=== PATIENT | female | born 1955 | race Caucasian/White ===

== ENCOUNTER → 2016-10-02 | Outpatient (CLI) | payer OTHER ==
--- NOTE | 2016-10-02 15:54 | MAMMOGRAPHY REPORT ---
BILATERAL DIGITAL SCREENING MAMMOGRAM WITH CAD: 10/02/2016 CLINICAL HISTORY: Routine screening. Patient has no complaints. TECHNIQUE: Current study was also evaluated with a Computer Aided Detection (CAD) system. Bilatera l CC and MLO views were obtained. COMPARISON: Comparison is made to exams dated: 10/01/2015 mammogram, 09/27/2014 mammogram, 09/26/2013 mammogram, 09/23/2012 mammogram, 09/23/2011 mammogram, and 09/11/2010 mammogram - [facility] enter. BREAST COMPOSITION: The tissue of both breasts is heterogeneously dense, which may obscure small ma sses. FINDINGS: No suspicious masses, calcifications, or areas of architectural distortion are noted in e ither breast. There has been no significant interval change compared to prior exams. IMPRESSION: ACR BI-RADS CATEGORY 1: NEGATIVE There is no mammographic evidence of malignancy. A 1 year screening mammogram is recommended. The p atient will receive written notification of the results. Approximately 10% of breast cancers are not detected with mammography. A negative mammographic repor t should not delay biopsy if a clinically suggestive mass is present. Melania Martinez M.D. /:10/02/2016 15:24:26 Welfare Project Manager: Jennifer RIVERA(Junior)(M), [facility] letter sent: Normal 1/2 BI-RADS Code: ACR BI-RADS Category 1: Negative
== END | disposition home or self-care (01) ==
LOC: C.MAMM 15:08
PROVIDERS: ATTEND Obstetrics & Gynecology
DX: Z12.31 Encounter for screening mammogram for malignant neoplasm of breast (principal)

== ENCOUNTER → 2017-10-05 | Outpatient (CLI) | payer OTHER ==
--- NOTE | 2017-10-06 13:18 | MAMMOGRAPHY REPORT ---
BILATERAL DIGITAL SCREENING MAMMOGRAM TOMOSYNTHESIS WITH CAD: 10/05/2017 CLINICAL HISTORY: Routine screening. Patient has no complaints. TECHNIQUE: Breast tomosynthesis in addition to standard 2D mammography was performed. Current study was also evaluated with a Computer Aided Detection (CAD) system. COMPARISON: Comparison is made to exams dated: 10/02/2016 mammogram, 10/01/2015 mammogram, 09/27/2014 m ammogram, 09/26/2013 mammogram, 09/23/2012 mammogram, and 09/23/2011 mammogram - [facility]. BREAST COMPOSITION: The tissue of both breasts is heterogeneously dense, which may obscure small mas ses. FINDINGS: There are scattered benign rim calcifications in the breasts. A nodular asymmetry in the s lightly medial right breast on the CC view appears similar dating back to at least 09/07/2008, therefo re likely benign. No new suspicious mass, architectural distortion or cluster of microcalcifications is seen. IMPRESSION: ACR BI-RADS CATEGORY 1: NEGATIVE There is no mammographic evidence of malignancy. A 1 year screening mammogram is recommended. The pa tient will receive written notification of the results. Approximately 10% of breast cancers are not detected with mammography. A negative mammographic report should not delay biopsy if a clinically suggestive mass is present. Maribel Comer M.D. ay/:10/06/2017 07:33:43 Clinic Receptionist: Alison MENA)(Prashant), [facility] letter sent: Normal 1/2 BI-RADS Code: ACR BI-RADS Category 1: Negative
== END | disposition home or self-care (01) ==
LOC: C.MAMM 14:13
PROVIDERS: ATTEND Obstetrics & Gynecology
DX: Z12.31 Encounter for screening mammogram for malignant neoplasm of breast (principal)

== ENCOUNTER 2023-07-05 10:40 | Observation (INO) ==
--- NOTE | 2023-07-05 11:22 | Emergency Department Note ---
Impression & Plan Left-sided chest pain, Complete left bundle branch block, Hypertension, Elevated hemoglobin, Elevated hematocrit ED Provider Note NAME: ROLANDO DOSHI AGE: 68 SEX: F ARRIVES VIA: Walk-In INFORMANT: Patient ED PROVIDER(S): Meet Mirza MD CHIEF COMPLAINT: Chest pain PLAN: Disposition: Admit MEDICAL DECISION MAKING: The patient is a pleasant 68-year-old woman with a past medical history of epilepsy, asthma, GERD who presents to the emergency department via walk-in accompanied by her for evaluation of worsening of chronic left shoulder pain over the development of new left-sided chest tightness with pain that also radiates to her jaw that began last night but had been evolving over the past several days with symptoms of generalized fatigue/malaise. She reports that she feels tightness intermittently which she feels is not particularly different and occurs in the setting of her asthma. She usually takes her inhalers and this improves. She reports having 1 episode of loose stool yesterday. She reports some nausea but denies vomiting. She denies any productive sputum. She describes the pain as a tightness that developed gradually denies any acute onset tearing or stabbing pain. She denies any recent pattern of exertional chest pain/pressure though she does report having shortness of breath with exertion at times. She reports having fluctuating symptoms of feeling sweats and then chills but denies any fevers. On evaluation the patient is no acute distress, afebrile heart in the 110s and blood pressure 180s/90s and vital signs otherwise stable. O2 saturation is normal on room air with normal respiratory effort. She has a scant intermittent wheeze and lungs are otherwise clear. Pulses are equal. She has reproducible discomfort of the left anterior superior chest wall without bony crepitus. She has full range of motion of bilateral shoulders without difficulty. EKG demonstrates left bundle branch block without prior for comparison. No Sgarbossa criteria. Chest x-ray negative for acute cardiopulmonary process. WBC and platelets within normal limits. H/H 16.6/49.6 without prior for comparison though suspicious for hemoconcentration and dehydration. Chemistry without metabolic acidosis. Electrolytes LFTs without significant abnormality. AST is mildly elevated 61, nonspecific. Initial high-sensitivity troponin is undetectable. TSH within normal limits. Urine analysis was unremarkable. Dilantin level was within therapeutic range. Respiratory BioFire was negative. CTA of the chest was performed was negative for PE or acute aortic pathology. No acute process otherwise identified. Upon evaluation patient did feel some improvement after IV fluid hydration x 2 L of normal saline, IV APAP, albuterol MDI, famotidine and Solu-Medrol. However still with some residual soreness. We did discuss her results in detail her results. We reviewed her EKG and discussed the nature of a left bundle branch block. Patient reports that she may have had an EKG a couple of years ago prior to having a procedure but she does not recall ever being told she had a left bundle branch block in the past. She follows with her providers in the [facility] and so these results are not accessible. We did review options for further management including close outpatient follow-up versus admission for further cardiac evaluation and possible stress testing given her new left bundle branch block and atypical symptoms. The patient did prefer admission at this time. Given the patient's moderate heart score of 4, reasonable to proceed with admission at this time. Full dose ASA administered. Case was discussed with BRINDA Warren hospitalist, who will evaluate the patient for admission. Further management per admitting team. Triage Nursing notes reviewed and agree them. Prior/external medical records reviewed Vital Signs: reviewed Differential diagnosis: Cardiac ischemia, aortic dissection, pulmonary embolism, pneumothorax, pneumonia, pericarditis, myocarditis, esophageal rupture, GERD, cholecystitis, pancreatitis, musculoskeletal, as well as other pathologies. ER treatment provided: See below. Diagnostics interpreted by me: ECG: Sinus tachycardia, 105 bpm, no ectopy, no sgarbossa criteria, QTC 502, QRS 130. Cardiac Monitoring: An order for continuous cardiac monitoring was placed and demonstrated Sinus tachycardia, 105 bpm, no ectopy. Laboratory studies: See below Imaging studies: See below Consultation(s): Case was discussed with BRINDA Warren hospitalist, who will evaluate the patient for admission. HPI: The patient is a pleasant 68-year-old woman with a past medical history of epilepsy, asthma, GERD who presents to the emergency department via walk-in accompanied by her for evaluation of worsening of chronic left shoulder pain over the development of new left-sided chest tightness with pain that also radiates to her jaw that began last night but had been evolving over the past several days with symptoms of generalized fatigue/malaise. She reports that she feels tightness intermittently which she feels is not particularly different and occurs in the setting of her asthma. She usually takes her inhalers and this improves. She reports having 1 episode of loose stool yesterday. She reports some nausea but denies vomiting. She denies any productive sputum. She describes the pain as a tightness that developed gradually denies any acute onset tearing or stabbing pain. She denies any recent pattern of exertional chest pain/pressure though she does report having shortness of breath with exertion at times. She reports having fluctuating symptoms of feeling sweats and then chills but denies any fevers. ROS: See above HPI for pertinent positives & negatives. A total of 10 systems reviewed and were otherwise negative. VITALS:See Below PHYSICAL EXAMINATION: GENERAL: Awake, alert, well-appearing, in no distress HENT: Normocephalic, atraumatic. Oropharynx with dry mucous membranes and otherwise unremarkable. EYES: Normal conjunctiva. Sclera non-icteric. NECK: Supple. No nuchal rigidity. FROM. No JVD. RESPIRATORY: Scant intermittent wheeze and lungs are otherwise clear. CARDIAC: Regular rate, normal rhythm. Extremities warm and well perfused. Pulses equal. ABDOMEN: Soft, non-distended. No tenderness to palpation. No rebound or guarding. No masses. RECTAL: Deferred. MUSCULOSKELETAL: Reproducible discomfort of the left anterior superior chest wall without bony crepitus. She has full range of motion of bilateral shoulders without difficulty. The back is symmetrical on inspection without obvious abnormality. There is no CVA tenderness to palpation. No joint edema. LOWER EXTREMITIES: Calves are equal size bilaterally and non-tender. No edema. No discoloration. NEURO: Normal sensorium. No sensory or motor deficits noted. SKIN: No rash or jaundice noted. Meet Mirza MD Past Med/Surg History Medical History Epilepsy Asthma Surgical History History of dilatation and curettage History of tubal ligation Family History Grandfather (Paternal) Myocardial infarction Grandmother (Paternal) Myocardial infarction Grandfather (Maternal) Myocardial infarction Denies family history of Ovarian cancer Prostate cancer Breast cancer Colorectal cancer Social History Smoking Status: Never smoker Do You Dip or Chew Tobacco: No; Hx Alcohol Use: No Hx Substance Use: No Preferred Language: Polish Adjustment Clerk Required: No Current Living Situation: Spouse Feels Safe at Home: Yes Safety Concerns: Feels Safe At This Time Allergies Allergies Allergy/AdvReac Type Severity Reaction Status Date / Time budesonide [From Symbicort] Allergy Severe Swelling Unverified 07/05/23 13:53 of Lip/Tongue/Throat formoterol [From Symbicort] Allergy Severe Swelling Unverified 07/05/23 13:53 of Lip/Tongue/Throat shellfish derived Allergy Severe Swelling Unverified 07/05/23 13:53 of Lip/Tongue/Throat gluten Allergy Intermediate Gastrointestinal Unverified 07/05/23 13:53 Upset Macrobid CAPS Allergy Intermediate Rash Uncoded 07/05/23 13:53 Penicillins Allergy Intermediate Rash Uncoded 07/05/23 13:53 Sulfa Drugs Allergy Intermediate Rash Uncoded 07/05/23 13:53 Home Meds Home Medications Medication Instructions Recorded Confirmed cholecalciferol (vitamin D3) 50 50 mcg PO DAILY 07/05/23 07/05/23 mcg (2,000 unit) tablet (Vitamin D3) famotidine 40 mg tablet 40 mg PO DAILY 07/05/23 07/05/23 levalbuterol tartrate 45 1 puff inhalation .Q4-6H PRN SOB 07/05/23 07/05/23 mcg/actuation aerosol inhaler (Xopenex HFA) montelukast 10 mg tablet 10 mg PO DAILY 07/05/23 07/05/23 multivitamin 1 tab PO QAM 07/05/23 07/05/23 pantoprazole 40 mg tablet,delayed 40 mg PO BID PRN Acid Reflux 07/05/23 07/05/23 release phenytoin sodium extended 100 mg 100 mg PO QAM 07/05/23 07/05/23 capsule (Dilantin Extended) phenytoin sodium extended 30 mg See Rx Instructions .Route .COMPLEX 07/05/23 07/05/23 capsule (Dilantin) triprolidine-pseudoephedrine 2.5 1 tab PO QID 07/05/23 07/05/23 mg-60 mg tablet Results & Data (ED) Vital Signs Vital Signs - 24 hr 07/05/23 10:42 07/05/23 11:08 07/05/23 11:30 Temperature 36.2 C L Temperature Source Temporal Artery Scan Pulse Rate 111 H Pulse Rate [Apical] 95 H Pulse Rate from SpO2 Sensor Pulse Rhythm [Apical] Regular Pulse Strength [Apical] Normal Respiratory Rate 16 16 Respiratory Effort / Characteristics Non-Labored Spontaneous Respiratory Depth Normal Respiratory Pattern Regular Blood Pressure 183/90 H 164/99 H Blood Pressure Mean 121 117 Pulse Oximetry 97 97 Oxygen Delivery Method Room Air Room Air Sepsis Recent Fever Within 48 Hours No Sepsis New/Unexplained Change in Mental Status N/A Sepsis Action Taken by Nursing No Action Required 07/05/23 11:30 07/05/23 11:36 07/05/23 12:30 Temperature Temperature Source Pulse Rate 104 H 100 H 96 H Pulse Rate [Apical] Pulse Rate from SpO2 Sensor 104 H 97 H 96 H Pulse Rhythm [Apical] Pulse Strength [Apical] Respiratory Rate 17 12 10 L Respiratory Effort / Characteristics Respiratory Depth Respiratory Pattern Blood Pressure 164/99 H 153/99 H 171/97 H Blood Pressure Mean 120 117 121 Pulse Oximetry 97 97 96 Oxygen Delivery Method Room Air Room Air Sepsis Recent Fever Within 48 Hours Sepsis New/Unexplained Change in Mental Status Sepsis Action Taken by Nursing 07/05/23 12:52 07/05/23 13:00 07/05/23 13:30 Temperature Temperature Source Pulse Rate 96 H 96 H 101 H Pulse Rate [Apical] Pulse Rate from SpO2 Sensor 96 H 101 H Pulse Rhythm [Apical] Pulse Strength [Apical] Respiratory Rate 13 17 Respiratory Effort / Characteristics Respiratory Depth Respiratory Pattern Blood Pressure 158/96 H 168/94 H Blood Pressure Mean 116 118 Pulse Oximetry 96 97 Oxygen Delivery Method Sepsis Recent Fever Within 48 Hours Sepsis New/Unexplained Change in Mental Status Sepsis Action Taken by Nursing 07/05/23 15:35 Temperature Temperature Source Pulse Rate 106 H Pulse Rate [Apical] Pulse Rate from SpO2 Sensor 107 H Pulse Rhythm [Apical] Pulse Strength [Apical] Respiratory Rate 17 Respiratory Effort / Characteristics Respiratory Depth Respiratory Pattern Blood Pressure 159/93 H Blood Pressure Mean 115 Pulse Oximetry 96 Oxygen Delivery Method Room Air Sepsis Recent Fever Within 48 Hours Sepsis New/Unexplained Change in Mental Status Sepsis Action Taken by Nursing Laboratory Data Attestation: I reviewed the patient's lab results. 07/05/23 10:57 07/05/23 10:57 Lab Results 07/05/23 07/05/23 07/05/23 Range/Units 10:57 10:57 10:57 WBC 5.17 (4.8-10.8) K/ul RBC 5.41 H (4.20-5.40) M/uL Hgb 16.6 H (12.0-16.0) g/dl Hct 49.6 H (37.0-47.0) % MCV 91.7 (80.0-100.0) fL MCH 30.7 (25.0-34.0) pg MCHC 33.5 (32.0-36.0) g/dL RDW Std Deviation 42.8 (36.4-46.3) fL RDW Coeff of Mick 12.7 (11.5-14.5) % Plt Count 261 (130-400) K/uL MPV 8.8 L (9.4-12.4) fL Immature Gran % (Auto) 0.2 % Neut % (Auto) 64.4 % Lymph % (Auto) 25.9 % Chilton % (Auto) 7.2 % Eos % (Auto) 1.5 % Baso % (Auto) 0.8 % Neut # (Auto) 3.33 (1.40-6.50) K/uL Lymph # (Auto) 1.34 (1.20-3.40) K/uL Chilton # (Auto) 0.37 (0.11-0.59) K/uL Eos # (Auto) 0.08 (0.00-0.50) K/uL Baso # (Auto) 0.04 (0.00-0.20) K/uL Immature Gran # (Auto) 0.01 (0.01-0.20) K/uL PT 10.8 (9.0-12.0) Seconds INR 1.0 (0.9-1.1) APTT 28 (21-31) Seconds PTT Ratio 1.0 Sodium 140 (136-145) mmol/L Potassium 3.8 (3.5-5.1) mmol/L Chloride 105 (98-107) mmol/L Carbon Dioxide 27 (21-32) mmol/L Anion Gap 8 (3-11) BUN 9 (6-23) mg/dl Creatinine 0.65 (0.6-1.2) mg/dl Est Cr Clr Drug Dosing 82.7 ml/min Est GFR ( Amer) 106.5 ml/min Est GFR (Non-Af Amer) 91.9 ml/min BUN/Creatinine Ratio 13.8 (10-20) Glucose 101 H (70-99(Fasting)) mg/dl Calcium 9.6 (8.6-10.3) mg/dl Phosphorus 2.8 Cancelled (2.5-4.9) mg/dl Magnesium 2.1 Cancelled (1.7-2.4) mg/dl Total Bilirubin 0.5 (0.2-1.0) mg/dl AST 61 H (13-39) U/L ALT 31 (7-52) U/L Alkaline Phosphatase 115 H (34-104) U/L Troponin I High Sens < 2.3 (0-14) pg/ml Total Protein 8.0 (6.0-8.3) gm/dl Albumin 4.8 (3.4-5.0) gm/dl Globulin 3.2 (2.5-4.0) gm/dl Albumin/Globulin Ratio 1.5 (0.9-2) TSH 1.944 (0.300-4.500) uIu/ml Urine Color Urine Appearance (Clear) Urine pH (4.5-7.5) Ur Specific Proctor (1.000-1.030) Urine Protein (Negative) Urine Glucose (UA) (Negative) Urine Ketones (Negative) Urine Blood (Negative) Urine Nitrite (Negative) Urine Bilirubin (Negative) Urine Urobilinogen (Negative) Ur Leukocyte Esterase (Negative) Phenytoin (10-20) mcg/ml Adenovirus (PCR) (NotDetected) B. pertussis DNA (PCR) (NotDetected) B.parapertussis DNA PCR (NotDetected) C. pneumoniae DNA (PCR) (NotDetected) Coronavirus OC43 (PCR) (NotDetected) Coronavirus HKU1 (PCR) (NotDetected) Coronavirus 229E (PCR) (NotDetected) SARS-CoV-2 (PCR) (NotDetected) Coronavirus NL63 (PCR) (NotDetected) Human Metapneumovir PCR (NotDetected) Influenza Type A (PCR) (NotDetected) Influenza Type B (PCR) (NotDetected) M. pneumoniae (PCR) (NotDetected) Parainfluenza 1 (PCR) (NotDetected) Parainfluenza 2 (PCR) (NotDetected) Parainfluenza 3 (PCR) (NotDetected) Parainfluenza 4 (PCR) (NotDetected) RSV (PCR) (NotDetected) Entero/Rhino (PCR) (NotDetected) 07/05/23 07/05/23 07/05/23 Range/Units 10:57 11:00 14:48 WBC (4.8-10.8) K/ul RBC (4.20-5.40) M/uL Hgb (12.0-16.0) g/dl Hct (37.0-47.0) % MCV (80.0-100.0) fL MCH (25.0-34.0) pg MCHC (32.0-36.0) g/dL RDW Std Deviation (36.4-46.3) fL RDW Coeff of Mick (11.5-14.5) % Plt Count (130-400) K/uL MPV (9.4-12.4) fL Immature Gran % (Auto) % Neut % (Auto) % Lymph % (Auto) % Chilton % (Auto) % Eos % (Auto) % Baso % (Auto) % Neut # (Auto) (1.40-6.50) K/uL Lymph # (Auto) (1.20-3.40) K/uL Chilton # (Auto) (0.11-0.59) K/uL Eos # (Auto) (0.00-0.50) K/uL Baso # (Auto) (0.00-0.20) K/uL Immature Gran # (Auto) (0.01-0.20) K/uL PT (9.0-12.0) Seconds INR (0.9-1.1) APTT (21-31) Seconds PTT Ratio Sodium (136-145) mmol/L Potassium (3.5-5.1) mmol/L Chloride (98-107) mmol/L Carbon Dioxide (21-32) mmol/L Anion Gap (3-11) BUN (6-23) mg/dl Creatinine (0.6-1.2) mg/dl Est Cr Clr Drug Dosing ml/min Est GFR ( Amer) ml/min Est GFR (Non-Af Amer) ml/min BUN/Creatinine Ratio (10-20) Glucose (70-99(Fasting)) mg/dl Calcium (8.6-10.3) mg/dl Phosphorus (2.5-4.9) mg/dl Magnesium (1.7-2.4) mg/dl Total Bilirubin (0.2-1.0) mg/dl AST (13-39) U/L ALT (7-52) U/L Alkaline Phosphatase (34-104) U/L Troponin I High Sens 4.4 (0-14) pg/ml Total Protein (6.0-8.3) gm/dl Albumin (3.4-5.0) gm/dl Globulin (2.5-4.0) gm/dl Albumin/Globulin Ratio (0.9-2) TSH Cancelled (0.300-4.500) uIu/ml Urine Color Yellow Urine Appearance Clear (Clear) Urine pH 7.0 (4.5-7.5) Ur Specific Proctor 1.005 (1.000-1.030) Urine Protein Negative (Negative) Urine Glucose (UA) Negative (Negative) Urine Ketones Negative (Negative) Urine Blood Negative (Negative) Urine Nitrite Negative (Negative) Urine Bilirubin Negative (Negative) Urine Urobilinogen Negative (Negative) Ur Leukocyte Esterase Negative (Negative) Phenytoin 13.0 (10-20) mcg/ml Adenovirus (PCR) Not Detected (NotDetected) B. pertussis DNA (PCR) Not Detected (NotDetected) B.parapertussis DNA PCR Not Detected (NotDetected) C. pneumoniae DNA (PCR) Not Detected (NotDetected) Coronavirus OC43 (PCR) Not Detected (NotDetected) Coronavirus HKU1 (PCR) Not Detected (NotDetected) Coronavirus 229E (PCR) Not Detected (NotDetected) SARS-CoV-2 (PCR) Not Detected (NotDetected) Coronavirus NL63 (PCR) Not Detected (NotDetected) Human Metapneumovir PCR Not Detected (NotDetected) Influenza Type A (PCR) Not Detected (NotDetected) Influenza Type B (PCR) Not Detected (NotDetected) M. pneumoniae (PCR) Not Detected (NotDetected) Parainfluenza 1 (PCR) Not Detected (NotDetected) Parainfluenza 2 (PCR) Not Detected (NotDetected) Parainfluenza 3 (PCR) Not Detected (NotDetected) Parainfluenza 4 (PCR) Not Detected (NotDetected) RSV (PCR) Not Detected (NotDetected) Entero/Rhino (PCR) Not Detected (NotDetected) Administered Medications Enoxaparin Sodium (Enoxaparin Inj 40 Mg/0.4 Ml Syr) 40 mg SQ Q24H MIGDALIA Stop: 08/04/23 21:29 Last Admin: 07/05/23 20:15 Dose: Not Given Documented By: ANEUDY Ondansetron HCl (Ondansetron Inj 2 Mg/Ml 2 Ml Vial) 4 mg IV Q6H PRN PRN Reason: Nausea Stop: 08/04/23 17:30 Last Admin: 07/05/23 21:22 Dose: 4 mg Documented By: ANEUDY Phenytoin Sodium (Phenytoin Sodium Er 100 Mg Cap) 100 mg PO [facility] Stop: 08/04/23 20:59 Last Admin: 07/05/23 20:15 Dose: 100 mg Documented By: ANEUDY Phenytoin Sodium (Phenytoin Sodium Er 30 Mg Cap) 30 mg PO [facility] Stop: 08/04/23 20:59 Last Admin: 07/05/23 20:14 Dose: 30 mg Documented By: ANEUDY Discontinued Medications Albuterol (Albuterol Hfa 8 Gm Inhaler) 2 puffs INH NOW ONE Stop: 07/05/23 11:20 Last Admin: 07/05/23 11:45 Dose: 2 puffs Documented By: JUSTINO Aspirin (Aspirin Chew 324 Mg) 324 mg PO NOW STA Stop: 07/05/23 14:32 Last Admin: 07/05/23 14:44 Dose: 324 mg Documented By: JUSTINO Sodium Chloride (Nss) 1,000 mls @ 999 mls/hr IV .Q1H1M ONE Stop: 07/05/23 12:09 Last Infusion: 07/05/23 13:40 Dose: Infused Documented By: Admin: 07/05/23 11:37 Dose: 999 mls/hr Documented By: JUSTINO Acetaminophen (Ofirmev) 1,000 mg in 100 mls @ 400 mls/hr IV NOW STA Stop: 07/05/23 11:32 Last Infusion: 07/05/23 12:19 Dose: Infused Documented By: Admin: 07/05/23 11:45 Dose: 400 mls/hr Documented By: JUSTINO Famotidine (Pepcid 20mg Iv Push) 20 mg in 5 mls @ 2.5 mls/min IV NOW STA Stop: 07/05/23 11:21 Last Admin: 07/05/23 11:46 Dose: 2.5 mls/min Documented By: JUSTINO Sodium Chloride (Nss) 1,000 mls @ 999 mls/hr IV .Q1H1M ONE Stop: 07/05/23 13:31 Last Infusion: 07/05/23 13:40 Dose: Infused Documented By: Admin: 07/05/23 12:39 Dose: 999 mls/hr Documented By: JUSTINO Ioversol (Optiray 320 125ml) 112 ml IV ONCE ONE Stop: 07/05/23 11:58 Last Admin: 07/05/23 11:57 Dose: 112 ml Documented By: YUNIER Methylprednisolone (Methylprednisolone 125 Mg/2 Ml Vial) 60 mg IV NOW STA Stop: 07/05/23 11:19 Last Admin: 07/05/23 11:46 Dose: 60 mg Documented By: JUSTINO Imaging Data Radiologist's Impression: Chest X-Ray 07/05/23 10:45 XR chest 1V portable CLINICAL HISTORY: Chest pain, nonspecific COMPARISON STUDY: No previous studies for comparison. FINDINGS: Lung volumes are normal. Lungs are clear. There is no pneumothorax or pleural effusion. Cardiac size is normal. Mediastinal contours are normal. There is no evidence for pulmonary edema. IMPRESSION: No acute cardiopulmonary findings. ACT 112: Negative or not required by law. Electronically signed by: Washington Patino M.D. 07/05/2023 11:23 AM Chest CTA 07/05/23 11:20 CT ANGIOGRAPHY OF THE CHEST, PULMONARY EMBOLUS PROTOCOL CLINICAL HISTORY: Chest pain and shortness of breath. Evaluate for pulmonary embolus. COMPARISON STUDY: Chest radiograph performed earlier today. TECHNIQUE: Following IV administration of 112 mL of Optiray, helical axial images of the chest were obtained utilizing the pulmonary embolus protocol. Maximal intensity projections and sagittal and coronal reformats were viewed on an independent 3D workstation. IV contrast was administered without complication. Automated exposure control was utilized for the study. A dose lowering technique was utilized adhering to the principles of ALARA. CT DOSE: 605.27 mGy.cm FINDINGS: No pulmonary emboli are identified. There is no thoracic aortic dissection. Size of the heart is within normal limits. There is no pericardial effusion. No thoracic lymphadenopathy. No pneumothorax or pleural effusion. No consolidation to suggest pneumonia. Groundglass opacities favor atelectasis. There are no pulmonary nodules. No acute fractures within the visualized bony thorax. Visualized portions of the upper abdomen are unremarkable. Subcentimeter hypodense right hepatic lobe lesion favors a cyst. IMPRESSION: 1. No pulmonary emboli identified. 2. No acute intrathoracic findings. ACT 112: Negative or not required by law. Electronically signed by: Washington Patino M.D. 07/05/2023 12:10 PM Discharge Plan Visit Data Chief Complaint: Illness Stated Complaint: ARM AND SHOULDER PAIN, JAW PAIN, ABD PAIN, WEAKNES ED Provider: Meet Mirza Discharge Problem: Left-sided chest pain, Complete left bundle branch block, Hypertension, Elevated hemoglobin, Elevated hematocrit Patient Disposition: Admitted As Inpatient Discharge Instructions Interventions: ED Discharge Assessment Last Done: 07/05/23 17:16 Discharge Problem: Hypertension Qualifiers: Hypertension type: unspecified Qualified Code(s): I10 - Essential (primary) hypertension
[2023-07-05 11:24] LABS: Basophils # (auto) 0.04 K/uL (0.00-0.20); Basophils % (auto) 0.8 %; Eosinophils # (auto) 0.08 K/uL (0.00-0.50); Eosinophils % (auto) 1.5 %; Hematocrit (blood only) 49.6 % (37.0-47.0); Hemoglobin 16.6 g/dl (12.0-16.0); Immature Granulocytes # (auto) 0.01 K/uL (0.01-0.20); Immature Granulocytes % (auto) 0.2 %; Lymphocytes # (auto) 1.34 K/uL (1.20-3.40); Lymphocytes % (auto) 25.9 %; Mean Corpuscular Hemoglobin 30.7 pg (25.0-34.0); Mean Corpuscular Hgb Conc 33.5 g/dL (32.0-36.0); Mean Corpuscular Volume 91.7 fL (80.0-100.0); Mean Platelet Volume 8.8 fL (9.4-12.4); Monocytes # (auto) 0.37 K/uL (0.11-0.59); Monocytes % (auto) 7.2 %; Neutrophils # (auto) 3.33 K/uL (1.40-6.50); Neutrophils % (auto) 64.4 %; Platelet Count 261 K/uL (130-400); RDW Coefficient of Variation 12.7 % (11.5-14.5); RDW Standard Deviation 42.8 fL (36.4-46.3); Red Blood Count 5.41 M/uL (4.20-5.40); White Blood Count 5.17 K/ul (4.8-10.8)
--- NOTE | 2023-07-05 11:25 | XRay Report ---
XR chest 1V portable CLINICAL HISTORY: Chest pain, nonspecific COMPARISON STUDY: No previous studies for comparison. FINDINGS: Lung volumes are normal. Lungs are clear. There is no pneumothorax or pleural effusion. Car diac size is normal. Mediastinal contours are normal. There is no evidence for pulmonary edema. IMPRESSION: No acute cardiopulmonary findings. ACT 112: Negative or not required by law. Electronically signed by: Washington Patino M.D. 07/05/2023 11:23 AM
[2023-07-05] MEDS: SODIUM CHLORIDE 0.9% 1,000 ML IV ONE ×2 (11:37→12:39)
[2023-07-05 11:39] LABS: Alanine Aminotransferase 31 U/L (7-52); Albumin Globulin Ratio 1.5 (0.9-2); Albumin Level 4.8 gm/dl (3.4-5.0); Alkaline Phosphatase 115 U/L (34-104); Anion Gap 8 (3-11); Aspartate Aminotransferase 61 U/L (13-39); BUN Creatinine Ratio 13.8 (10-20); Bilirubin,Total 0.5 mg/dl (0.2-1.0); Blood Urea Nitrogen 9 mg/dl (6-23); Calcium 9.6 mg/dl (8.6-10.3); Carbon Dioxide 27 mmol/L (21-32); Chloride 105 mmol/L (98-107); Creatinine Clr Calc Pharmacy 82.7 ml/min; Est GFR (African American) 106.5 ml/min; Est GFR (Non-African American) 91.9 ml/min; Globulin 3.2 gm/dl (2.5-4.0); Glucose 101 mg/dl (70-99(Fasting)); Potassium 3.8 mmol/L (3.5-5.1); Sodium 140 mmol/L (136-145)
[2023-07-05] MEDS: ACETAMINOPHEN 1,000 MG/100 ML VIAL IV STA (11:45)
[2023-07-05] MEDS: ALBUTEROL HFA 8 GM INHALER INH ONE (11:45)
[2023-07-05 11:46] LABS: Troponin I High Sensitivity < 2.3 pg/ml (0-14)
[2023-07-05] MEDS: FAMOTIDINE 20MG IV PUSH 20 MG/5 ML SYR IV STA (11:46)
[2023-07-05] MEDS: methylPREDNISolone 125 MG/2 ML VIAL IV STA (11:46)
[2023-07-05 11:47] LABS: Magnesium 2.1 mg/dl (1.7-2.4); Phosphorus 2.8 mg/dl (2.5-4.9)
[2023-07-05 11:48] LABS: Partial Thromboplastin Time 28 Seconds (21-31); Prothrombin Time 10.8 Seconds (9.0-12.0)
[2023-07-05] MEDS: OPTIRAY 320 125ml IV ONE (11:57)
[2023-07-05 12:02] LABS: Thyroid Stimulating Hormone 1.944 uIu/ml (0.300-4.500)
--- NOTE | 2023-07-05 12:12 | CT Scan Report ---
CT ANGIOGRAPHY OF THE CHEST, PULMONARY EMBOLUS PROTOCOL CLINICAL HISTORY: Chest pain and shortness of breath. Evaluate for pulmonary embolus. COMPARISON STUDY: Chest radiograph performed earlier today. TECHNIQUE: Following IV administration of 112 mL of Optiray, helical axial images of the chest were o btained utilizing the pulmonary embolus protocol. Maximal intensity projections and sagittal and cor onal reformats were viewed on an independent 3D workstation. IV contrast was administered without co mplication. Automated exposure control was utilized for the study. A dose lowering technique was ut ilized adhering to the principles of ALARA. CT DOSE: 605.27 mGy.cm FINDINGS: No pulmonary emboli are identified. There is no thoracic aortic dissection. Size of the he art is within normal limits. There is no pericardial effusion. No thoracic lymphadenopathy. No pneumo thorax or pleural effusion. No consolidation to suggest pneumonia. Groundglass opacities favor atelec tasis. There are no pulmonary nodules. No acute fractures within the visualized bony thorax. Visualiz ed portions of the upper abdomen are unremarkable. Subcentimeter hypodense right hepatic lobe lesion favors a cyst. IMPRESSION: 1. No pulmonary emboli identified. 2. No acute intrathoracic findings. ACT 112: Negative or not required by law. Electronically signed by: Washington Patino M.D. 07/05/2023 12:10 PM
[2023-07-05 12:36] LABS: Appearance Urine Clear (Clear); Bilirubin Urine Negative (Negative); Blood Urine Negative (Negative); Color Urine Yellow; Glucose Urine UA Negative (Negative); Ketones Urine Negative (Negative); Leukocyte Esterase Urine Negative (Negative); Nitrite Urine Negative (Negative); Protein Urine Negative (Negative); Specific Gravity Urine 1.005 (1.000-1.030); Urobilinogen Urine Negative (Negative)
[2023-07-05 13:25] LABS: Adenovirus PCR Not Detected (NotDetected); Bordetella parapertussis PCR Not Detected (NotDetected); Bordetella pertussis PCR Not Detected (NotDetected); Chlamydia pneumoniae PCR Not Detected (NotDetected); Coronavirus 229E PCR Not Detected (NotDetected); Coronavirus CoV-2 (COVID19)PCR Not Detected (NotDetected); Coronavirus HKU1 PCR Not Detected (NotDetected); Coronavirus NL63 PCR Not Detected (NotDetected); Coronavirus OC43PCR Not Detected (NotDetected); Human Metapneumovirus PCR Not Detected (NotDetected); Influenza A PCR Not Detected (NotDetected); Influenza B PCR Not Detected (NotDetected); Mycoplasma pneumoniae PCR Not Detected (NotDetected); Parainfluenza Virus 1 PCR Not Detected (NotDetected); Parainfluenza Virus 2 PCR Not Detected (NotDetected); Parainfluenza Virus 3 PCR Not Detected (NotDetected); Parainfluenza Virus 4 PCR Not Detected (NotDetected); Respiratory Syncytial VirusPCR Not Detected (NotDetected); Rhinovirus/Enterovirus PCR Not Detected (NotDetected)
[2023-07-05] MEDS: ASPIRIN CHEW 324 MG PO STA (14:44)
--- NOTE | 2023-07-05 15:16 | History & Physical Report ---
Date of Service July 05, 2023 Assessment & Plan (1) Left shoulder pain: Plan: Acute worsening of left shoulder pain/pressure that intermittently radiates to left jaw x 1 week She also endorses intermittent chest heaviness x 1 week No hx of MIs EKG revealed sinus tachycardia at 105 bpm; QTc 502 (caution QT prolonging agents); left bundle branch block No prior EKGs for comparison; patient is unsure if she has had the LBBB present in the past Discussed LBBB with Cardiology; Cardiology consulted Troponin WNL x 2 CXR NAF Chest CTA revealed no PE, aortic dissection, or acute intrathoracic findings Echocardiogram ordered, pending Continuous telemetry monitoring A.m. CBC, BMP, troponin (2) Asthma: Plan: Patient notes she recently started montelukast 3 weeks ago Hold montelukast for now Continue Xopenex as needed (3) Epilepsy: Plan: Continue phenytoin 100 mg in the morning and 130 mg at night (4) GERD (gastroesophageal reflux disease): Plan: Protonix 40mg IV QAM Plan Disposition: Obs - MedSurg telemetry Full code AHA diet, gluten free VTE PPx: Lovenox 40 mg SQ q24h History of Present Illness Chief Complaint: Cardiac assessment Primary Care Provider: Los Samano MD Gordo is a 68-year-old female with PMH of GERD, asthma, and epilepsy. She presented worsening acute on chronic left shoulder pain with radiation to left jaw x 1 week. She also endorses chest heaviness, and episodes of sweating and chills, which the patient reports feel like hot flashes x 3 episodes over the past 4 days; these episodes are short-lived and she reports that one episode occurred while walking down the stairs. She notes new onset leg weakness that started on Saturday 07/01. She was fasting for Lent, but says it felt like she "ran a marathon" on and Thursday. She has been taking Tylenol on occasion for headache, as well as using Aspercreme for her left shoulder pain. The left shoulder pain/pressure is intermittent and is alleviated with different changes in position. She rates 2/10 at present, and describes it as a dull, achy pain that last for approximately 20 minutes at a time. She does note that she sees a chiropractor (last saw chiropractor 3 weeks ago), and that she does hear shoulder popping on occasion. She also notes that the radiation to her left jaw has occurred in the past outside of the past week. Patient took all of her regular morning medications today, including Dilantin for history of epilepsy. Of note, she started on Singulair 3 weeks ago to help decrease her inhaler usage for asthma. No prior medical history of [place], stroke, DVT/PE, cancer, diabetes. She is right-handed. No recent overexertion of the left arm, and she reports that the left arm often falls asleep. She does not remember when she last had an EKG done, but has never been told that she had a bundle block in the past; she believes she had last EKG done in 2008 when she had her gallbladder removed. She denies fainting, falls, or trauma to the left arm or shoulder. She denies smoking, alcohol use. Patient is hypertensive at 159/93, and mildly tachycardic at 106 bpm at time of admission; vitals otherwise stable. ED course: NSS 1000 mL IV x 2 Acetaminophen 1000 mg IV Solu-Medrol 60 mg IV Albuterol 2 puffs Famotidine 20 mg IV Aspirin 324 mg p.o. ROS: Patient endorses chills, sweating, AGUILAR, chest heaviness, dry cough, sore throat, and left shoulder pain/pressure that intermittently radiates to the left jaw. Patient denies fever, dizziness, lightheadedness, fainting, SOB, abdominal pain, N/V/D, or numbness/tingling going down arms or legs. Allergies Allergy/AdvReac Type Severity Reaction Status Date / Time budesonide [From Symbicort] Allergy Severe Swelling Unverified 07/05/23 13:53 of Lip/Tongue/Throat formoterol [From Symbicort] Allergy Severe Swelling Unverified 07/05/23 13:53 of Lip/Tongue/Throat shellfish derived Allergy Severe Swelling Unverified 07/05/23 13:53 of Lip/Tongue/Throat gluten Allergy Intermediate Gastrointestinal Unverified 07/05/23 13:53 Upset Macrobid CAPS Allergy Intermediate Rash Uncoded 07/05/23 13:53 Penicillins Allergy Intermediate Rash Uncoded 07/05/23 13:53 Sulfa Drugs Allergy Intermediate Rash Uncoded 07/05/23 13:53 Home Medications Medication Instructions Recorded Confirmed Type cholecalciferol (vitamin D3) 50 50 mcg PO DAILY 07/05/23 07/05/23 History mcg (2,000 unit) tablet (Vitamin D3) famotidine 40 mg tablet 40 mg PO DAILY 07/05/23 07/05/23 History levalbuterol tartrate 45 1 puff inhalation .Q4-6H PRN SOB 07/05/23 07/05/23 History mcg/actuation aerosol inhaler (Xopenex HFA) montelukast 10 mg tablet 10 mg PO DAILY 07/05/23 07/05/23 History multivitamin 1 tab PO QAM 07/05/23 07/05/23 History pantoprazole 40 mg tablet,delayed 40 mg PO BID PRN Acid Reflux 07/05/23 07/05/23 History release phenytoin sodium extended 100 mg 100 mg PO QAM 07/05/23 07/05/23 History capsule (Dilantin Extended) phenytoin sodium extended 30 mg See Rx Instructions .Route .COMPLEX 07/05/23 07/05/23 History capsule (Dilantin) triprolidine-pseudoephedrine 2.5 1 tab PO QID 07/05/23 07/05/23 History mg-60 mg tablet Past Med/Surg History Medical History Epilepsy Asthma Surgical History History of dilatation and curettage History of tubal ligation Family History Grandfather (Paternal) Myocardial infarction Grandmother (Paternal) Myocardial infarction Grandfather (Maternal) Myocardial infarction Denies family history of Ovarian cancer Prostate cancer Breast cancer Colorectal cancer Social History Smoking Status: Never smoker Do You Dip or Chew Tobacco: No; Hx Alcohol Use: No Hx Substance Use: No Preferred Language: Slovenian 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 Current Living Situation: Spouse Feels Safe at Home: Yes Safety Concerns: Feels Safe At This Time Review of Systems Review of Systems: See HPI above Physical Exam Physical Exam: General: no acute distress; non-toxic appearing; well-nourished; cooperative HEENT: normocephalic, atraumatic; no scleral icterus; PERRLA; moist mucus membrane; vision and hearing grossly intact Neck: supple; no lymphadenopathy; trachea midline Skin: warm, dry without signs of tenting; no cyanosis; no rashes, bruising, lesions, or erythema noted CV: chest wall NTP; RRR; S1/S2 normal; no murmurs/rubs/gallops; pulses intact and symmetric at radial, DP, and PT Lungs: no acute respiratory distress; symmetrical chest wall expansion; diminished breath sounds bilaterally w/o adventitious sounds; no wheezing ABD: Soft, NTP; BS present; no rebound/guarding; no ascites; no distention; negative CVA tenderness MSK: Left upper shoulder is TTP; pain reproducible on palpation; no tics or fasciculations; no edema noted in the LEs b/l, nonerythematous Neuro: A&Ox3; normal mood and affect; fluent speech; no focal deficits; sensation grossly intact in the LEs b/l Results & Data Results & Data Vital Signs (Past 12 Hours) Vital Signs Temp Pulse Pulse Resp BP Pulse Ox O2 Del Method 07/05/23 12:52 96 H 07/05/23 11:08 95 H 16 97 Room Air 07/05/23 10:42 36.2 C L 111 H 16 183/90 H 97 Room Air Laboratory Results Abnormal lab results 07/05/23 Range/Units 10:57 RBC 5.41 H (4.20-5.40) M/uL Hgb 16.6 H (12.0-16.0) g/dl Hct 49.6 H (37.0-47.0) % MPV 8.8 L (9.4-12.4) fL Glucose 101 H (70-99(Fasting)) mg/dl AST 61 H (13-39) U/L Alkaline Phosphatase 115 H (34-104) U/L Diagnostic Findings Chest X-Ray 07/05/23 10:45 XR chest 1V portable CLINICAL HISTORY: Chest pain, nonspecific COMPARISON STUDY: No previous studies for comparison. FINDINGS: Lung volumes are normal. Lungs are clear. There is no pneumothorax or pleural effusion. Cardiac size is normal. Mediastinal contours are normal. There is no evidence for pulmonary edema. IMPRESSION: No acute cardiopulmonary findings. ACT 112: Negative or not required by law. Electronically signed by: Washington Patino M.D. 07/05/2023 11:23 AM Chest CTA 07/05/23 11:20 CT ANGIOGRAPHY OF THE CHEST, PULMONARY EMBOLUS PROTOCOL CLINICAL HISTORY: Chest pain and shortness of breath. Evaluate for pulmonary embolus. COMPARISON STUDY: Chest radiograph performed earlier today. TECHNIQUE: Following IV administration of 112 mL of Optiray, helical axial images of the chest were obtained utilizing the pulmonary embolus protocol. Maximal intensity projections and sagittal and coronal reformats were viewed on an independent 3D workstation. IV contrast was administered without complication. Automated exposure control was utilized for the study. A dose lowering technique was utilized adhering to the principles of ALARA. CT DOSE: 605.27 mGy.cm FINDINGS: No pulmonary emboli are identified. There is no thoracic aortic dissection. Size of the heart is within normal limits. There is no pericardial effusion. No thoracic lymphadenopathy. No pneumothorax or pleural effusion. No consolidation to suggest pneumonia. Groundglass opacities favor atelectasis. There are no pulmonary nodules. No acute fractures within the visualized bony thorax. Visualized portions of the upper abdomen are unremarkable. Subcentimeter hypodense right hepatic lobe lesion favors a cyst. IMPRESSION: 1. No pulmonary emboli identified. 2. No acute intrathoracic findings. ACT 112: Negative or not required by law. Electronically signed by: Washington Patino M.D. 07/05/2023 12:10 PM Code Status & VTE Plan Code Status Full code VTE Prophylaxis Plan VTE Prophylaxis will be ordered: Yes PG Care Time/CCT Total # of Minutes Spent Total Time Spent with Patient: Total time spent is greater than 50% in coordination of care (as documented) at patient's floor/unit and/or counseling patient: [place] [address] INT INP/OBS CARE 1/40MIN Patient Type New Medical Decision Making Low Complexity Diagnoses Left shoulder pain M25.512 Asthma J45.909 Epilepsy G40.909 GERD (gastroesophageal reflux disease) K21.9
[2023-07-05] MEDS ORDERED: LEVALBUTEROL TARTRATE 15 GM HFA.AER.AD INH PRN (17:31)
[2023-07-05] MEDS: PHENYTOIN SODIUM ER 30 MG CAP PO SCH (20:14)
[2023-07-05] MEDS: PHENYTOIN SODIUM ER 100 MG CAP PO SCH (20:15)
[2023-07-05] MEDS: ENOXAPARIN INJ 40 MG/0.4 ML SYR SQ SCH (20:15)
[2023-07-05] MEDS: ONDANSETRON INJ 2 MG/ML 2 ML VIAL IV PRN (21:22)
[2023-07-06] MEDS: ACETAMINOPHEN 325 MG TAB PO PRN (02:47)
--- NOTE | 2023-07-06 06:54 | Electrocardiogram Report ---
Test Reason : Blood Pressure : / mmHG Vent. Rate : 105 BPM Atrial Rate : 105 BPM P-R Int : 152 ms QRS Dur : 130 ms QT Int : 380 ms P-R-T Axes : 053 004 087 degrees QTc Int : 502 ms Sinus tachycardia Possible Left atrial enlargement Left bundle branch block Abnormal ECG No previous ECGs available Confirmed by Elias Arreaga ([id number]) on 07/06/2023 6:54:20 AM Referred By: REFERRED SELF Confirmed By:Elias Arreaga
[2023-07-06 08:13] LABS: Basophils # (auto) 0.04 K/uL (0.00-0.20); Basophils % (auto) 0.6 %; Eosinophils # (auto) 0.06 K/uL (0.00-0.50); Hematocrit (blood only) 45.1 % (37.0-47.0); Hemoglobin 15.3 g/dl (12.0-16.0); Immature Granulocytes # (auto) 0.02 K/uL (0.01-0.20); Immature Granulocytes % (auto) 0.3 %; Lymphocytes # (auto) 1.75 K/uL (1.20-3.40); Lymphocytes % (auto) 28.2 %; Mean Corpuscular Hemoglobin 31.3 pg (25.0-34.0); Mean Corpuscular Hgb Conc 33.9 g/dL (32.0-36.0); Mean Corpuscular Volume 92.2 fL (80.0-100.0); Mean Platelet Volume 8.9 fL (9.4-12.4); Monocytes # (auto) 0.44 K/uL (0.11-0.59); Monocytes % (auto) 7.1 %; Neutrophils % (auto) 62.8 %; Platelet Count 239 K/uL (130-400); RDW Coefficient of Variation 12.9 % (11.5-14.5); RDW Standard Deviation 43.9 fL (36.4-46.3); Red Blood Count 4.89 M/uL (4.20-5.40); White Blood Count 6.21 K/ul (4.8-10.8)
[2023-07-06] MEDS: PHENYTOIN SODIUM ER 100 MG CAP PO SCH (08:34)
[2023-07-06] MEDS: FAMOTIDINE 40 MG TABLET PO SCH (08:34)
[2023-07-06 08:37] LABS: BUN Creatinine Ratio 16.2 (10-20); Calcium 9.3 mg/dl (8.6-10.3); Creatinine Clr Calc Pharmacy 78.9 ml/min; Est GFR (African American) 104.9 ml/min; Est GFR (Non-African American) 90.5 ml/min
--- NOTE | 2023-07-06 09:57 | XCELERA ---
[id number]
[2023-07-06] MEDS: HYDROCODONE/ACETAMOPHEN 5/325MG TAB PO STA (10:15)
[2023-07-06] MEDS: PANTOprazole 40 MG in SYRINGE 0 ML IV SCH (10:16)
--- NOTE | 2023-07-06 10:26 | Cardiology Consultation ---
Date of Consultation July 06, 2023 Assessment & Plan (1) Complete left bundle branch block: Plan 1. Left bundle-branch block: This is unclear duration. No prior EKG in her record for review. The heart appears structurally normal on echocardiography without cardiomyopathy or significant enlargement. While she does have some exertional symptoms, they generally appear to be related to her asthma rather than coronary disease. He would be reasonable to perform an evaluation for coronary disease. The left bundle branch block and her persistent asthma complicates testing. Perhaps her best option is a coronary CT angiogram. She did not appear to have significant calcification on her chest CT and it is very likely will get a good result. The only potential problem is her resting tachycardia. I think she is a poor candidate for Lexiscan given her persistent asthma. Other testing has some potential for inducing ischemia which is difficult to identify in real-time with her baseline left bundle branch block. No evidence of more significant conduction disease or symptoms associated with bradycardia. 2. Hypertension: She appears have elevated blood pressures. It is possible this is contributed to some conduction disease over many years. She would likely benefit from initiation of antihypertensive medication. 3. Exertional symptoms: She does have some symptoms associated with exertion. Most of these appear to be related to asthma. However, would seem reasonable in the setting of left bundle branch block exertional symptoms to provide some testing for coronary disease. As noted above I think an outpatient coronary CT angiogram would be my preference. 4. Shoulder and jaw pain: I think we can safely say that this noncardiac. Likely musculoskeletal. History of Present Illness Reason for Consultation: Left bundle branch block Requesting Physician: Goldy Attending Physician: Vignesh Chávez MD History of Present Illness The patient is a 68-year-old woman without a known history of cardiac disease who presents to the emergency room with variety of symptoms. Apparently for the past 3 days the patient does not fell well. She has had some diffuse symptoms generalized weakness, nausea and fatigue. In addition she has left shoulder discomfort that has persisted for a few days. She has had shoulder discomfort in the past. She recalls an injury she was much younger while riding a horse. Moving her arm in certain directions generally causes discomfort in the left shoulder. Over the past few days the pain has been more constant in nature. It is positional. It did radiate to the left neck. She has also had the aforementioned symptoms of nausea and fatigue. She has chronic poorly controlled asthma which has been persistent. She uses inhaler quite frequently for symptoms of dyspnea. The symptoms are also exertional in nature. She will wake up in middle of the night to use the inhaler frequently. She did not describe overt orthopnea. She has not noticed any lower extremity edema. She did not endorse symptoms of palpitations, dizziness, lightheadedness or syncope. Due to her persistent asthma she is relatively sedentary. She does have some difficulty even at ascending stairs at home and needs to use her inhaler prior to going up the stairs. She has had a sense of chest heaviness associated with her current symptoms. Allergies Allergy/AdvReac Type Severity Reaction Status Date / Time budesonide [From Symbicort] Allergy Severe Swelling Unverified 07/05/23 13:53 of Lip/Tongue/Throat formoterol [From Symbicort] Allergy Severe Swelling Unverified 07/05/23 13:53 of Lip/Tongue/Throat shellfish derived Allergy Severe Swelling Unverified 07/05/23 13:53 of Lip/Tongue/Throat gluten Allergy Intermediate Gastrointestinal Unverified 07/05/23 13:53 Upset Macrobid CAPS Allergy Intermediate Rash Uncoded 07/05/23 13:53 Penicillins Allergy Intermediate Rash Uncoded 07/05/23 13:53 Sulfa Drugs Allergy Intermediate Rash Uncoded 07/05/23 13:53 Home Medications Medication Instructions Recorded Confirmed Type cholecalciferol (vitamin D3) 50 50 mcg PO DAILY 07/05/23 07/05/23 History mcg (2,000 unit) tablet (Vitamin D3) famotidine 40 mg tablet 40 mg PO DAILY 07/05/23 07/05/23 History levalbuterol tartrate 45 1 puff inhalation .Q4-6H PRN SOB 07/05/23 07/05/23 History mcg/actuation aerosol inhaler (Xopenex HFA) montelukast 10 mg tablet 10 mg PO DAILY 07/05/23 07/05/23 History multivitamin 1 tab PO QAM 07/05/23 07/05/23 History pantoprazole 40 mg tablet,delayed 40 mg PO BID PRN Acid Reflux 07/05/23 07/05/23 History release phenytoin sodium extended 100 mg 100 mg PO QAM 07/05/23 07/05/23 History capsule (Dilantin Extended) phenytoin sodium extended 30 mg See Rx Instructions .Route .COMPLEX 07/05/23 07/05/23 History capsule (Dilantin) triprolidine-pseudoephedrine 2.5 1 tab PO QID 07/05/23 07/05/23 History mg-60 mg tablet Patient History Medical History Epilepsy Asthma Surgical History History of dilatation and curettage History of tubal ligation Family History Grandfather (Paternal) Myocardial infarction Grandmother (Paternal) Myocardial infarction Grandfather (Maternal) Myocardial infarction Denies family history of Ovarian cancer Prostate cancer Breast cancer Colorectal cancer Social History Smoking Status: Never smoker Do You Dip or Chew Tobacco: No; Hx Alcohol Use: No Hx Substance Use: No Preferred Language: Armenian 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 At the time of my interview the patient also complained of a migraine. She has headaches fairly frequently. Physical Exam Physical Exam: She is alert and oriented x3. Mood affect appear normal. She answered all questions appropriately. HEENT: Sclerae are anicteric. Pupils are equal and reactive to light and accommodation. Extraocular movements were intact. Neuro: Cranial nerves intact Lungs: Lungs are clear to auscultation bilaterally. There are no rales wheezes or rhonchi. She has normal respiratory effort without use of accessory muscles. There is normal pulmonary excursion. Cardiac: The rhythm was regular. S1 and S2 were normal. There are no murmurs on examination. The PMI was not markedly displaced on palpation. Extremities: Patient has bilateral radial pulses that are equal in intensity. There is no evidence cyanosis or clubbing. There was no evidence of significant peripheral edema bilaterally. Mild tenderness over the left trapezius with palpation. Skin: There are no rashes noted on examination today. Results & Data Vital Signs (Past 12 Hours) Vital Signs Temp Pulse Pulse Resp BP Pulse Ox O2 Del Method 07/06/23 07:37 87 07/06/23 07:00 36.7 C 91 H 16 147/99 H 94 Room Air 07/06/23 03:02 36.9 C 87 18 124/72 93 Room Air 07/05/23 23:36 89 07/05/23 23:07 37 C 92 H 18 117/65 95 Room Air 07/05/23 22:40 Room Air Laboratory Results Abnormal Lab Results 07/05/23 07/05/23 07/05/23 10:57 10:57 10:57 WBC 5.17 RBC 5.41 H Hgb 16.6 H Hct 49.6 H MCV 91.7 MCH 30.7 MCHC 33.5 RDW Std Deviation 42.8 RDW Coeff of Mick 12.7 Plt Count 261 MPV 8.8 L Immature Gran % (Auto) 0.2 Neut % (Auto) 64.4 Lymph % (Auto) 25.9 Jennings % (Auto) 7.2 Eos % (Auto) 1.5 Baso % (Auto) 0.8 Neut # (Auto) 3.33 Lymph # (Auto) 1.34 Jennings # (Auto) 0.37 Eos # (Auto) 0.08 Baso # (Auto) 0.04 Immature Gran # (Auto) 0.01 PT 10.8 INR 1.0 APTT 28 PTT Ratio 1.0 Sodium 140 Potassium 3.8 Chloride 105 Carbon Dioxide 27 Anion Gap 8 BUN 9 Creatinine 0.65 Est Cr Clr Drug Dosing 82.7 Est GFR ( Amer) 106.5 Est GFR (Non-Af Amer) 91.9 BUN/Creatinine Ratio 13.8 Glucose 101 H Calcium 9.6 Phosphorus 2.8 Cancelled Magnesium 2.1 Cancelled Total Bilirubin 0.5 AST 61 H ALT 31 Alkaline Phosphatase 115 H Troponin I High Sens < 2.3 Total Protein 8.0 Albumin 4.8 Globulin 3.2 Albumin/Globulin Ratio 1.5 TSH 1.944 Urine Color Urine Appearance Urine pH Ur Specific Vining Urine Protein Urine Glucose (UA) Urine Ketones Urine Blood Urine Nitrite Urine Bilirubin Urine Urobilinogen Ur Leukocyte Esterase Phenytoin Adenovirus (PCR) B. pertussis DNA (PCR) B.parapertussis DNA PCR C. pneumoniae DNA (PCR) Coronavirus OC43 (PCR) Coronavirus HKU1 (PCR) Coronavirus 229E (PCR) SARS-CoV-2 (PCR) Coronavirus NL63 (PCR) Human Metapneumovir PCR Influenza Type A (PCR) Influenza Type B (PCR) M. pneumoniae (PCR) Parainfluenza 1 (PCR) Parainfluenza 2 (PCR) Parainfluenza 3 (PCR) Parainfluenza 4 (PCR) RSV (PCR) Entero/Rhino (PCR) 07/05/23 07/05/23 07/05/23 10:57 11:00 14:48 WBC RBC Hgb Hct MCV MCH MCHC RDW Std Deviation RDW Coeff of Mick Plt Count MPV Immature Gran % (Auto) Neut % (Auto) Lymph % (Auto) Jennings % (Auto) Eos % (Auto) Baso % (Auto) Neut # (Auto) Lymph # (Auto) Jennings # (Auto) Eos # (Auto) Baso # (Auto) Immature Gran # (Auto) PT INR APTT PTT Ratio Sodium Potassium Chloride Carbon Dioxide Anion Gap BUN Creatinine Est Cr Clr Drug Dosing Est GFR ( Amer) Est GFR (Non-Af Amer) BUN/Creatinine Ratio Glucose Calcium Phosphorus Magnesium Total Bilirubin AST ALT Alkaline Phosphatase Troponin I High Sens 4.4 Total Protein Albumin Globulin Albumin/Globulin Ratio TSH Cancelled Urine Color Yellow Urine Appearance Clear Urine pH 7.0 Ur Specific Vining 1.005 Urine Protein Negative Urine Glucose (UA) Negative Urine Ketones Negative Urine Blood Negative Urine Nitrite Negative Urine Bilirubin Negative Urine Urobilinogen Negative Ur Leukocyte Esterase Negative Phenytoin 13.0 Adenovirus (PCR) Not Detected B. pertussis DNA (PCR) Not Detected B.parapertussis DNA PCR Not Detected C. pneumoniae DNA (PCR) Not Detected Coronavirus OC43 (PCR) Not Detected Coronavirus HKU1 (PCR) Not Detected Coronavirus 229E (PCR) Not Detected SARS-CoV-2 (PCR) Not Detected Coronavirus NL63 (PCR) Not Detected Human Metapneumovir PCR Not Detected Influenza Type A (PCR) Not Detected Influenza Type B (PCR) Not Detected M. pneumoniae (PCR) Not Detected Parainfluenza 1 (PCR) Not Detected Parainfluenza 2 (PCR) Not Detected Parainfluenza 3 (PCR) Not Detected Parainfluenza 4 (PCR) Not Detected RSV (PCR) Not Detected Entero/Rhino (PCR) Not Detected 07/06/23 07:03 WBC 6.21 RBC 4.89 Hgb 15.3 Hct 45.1 MCV 92.2 MCH 31.3 MCHC 33.9 RDW Std Deviation 43.9 RDW Coeff of Mick 12.9 Plt Count 239 MPV 8.9 L Immature Gran % (Auto) 0.3 Neut % (Auto) 62.8 Lymph % (Auto) 28.2 Jennings % (Auto) 7.1 Eos % (Auto) 1.0 Baso % (Auto) 0.6 Neut # (Auto) 3.90 Lymph # (Auto) 1.75 Jennings # (Auto) 0.44 Eos # (Auto) 0.06 Baso # (Auto) 0.04 Immature Gran # (Auto) 0.02 PT INR APTT PTT Ratio Sodium 140 Potassium 4.0 Chloride 107 Carbon Dioxide 26 Anion Gap 7 BUN 11 Creatinine 0.68 Est Cr Clr Drug Dosing 78.9 Est GFR ( Amer) 104.9 Est GFR (Non-Af Amer) 90.5 BUN/Creatinine Ratio 16.2 Glucose 111 H Calcium 9.3 Phosphorus Magnesium Total Bilirubin AST ALT Alkaline Phosphatase Troponin I High Sens 3.0 Total Protein Albumin Globulin Albumin/Globulin Ratio TSH Urine Color Urine Appearance Urine pH Ur Specific Vining Urine Protein Urine Glucose (UA) Urine Ketones Urine Blood Urine Nitrite Urine Bilirubin Urine Urobilinogen Ur Leukocyte Esterase Phenytoin Adenovirus (PCR) B. pertussis DNA (PCR) B.parapertussis DNA PCR C. pneumoniae DNA (PCR) Coronavirus OC43 (PCR) Coronavirus HKU1 (PCR) Coronavirus 229E (PCR) SARS-CoV-2 (PCR) Coronavirus NL63 (PCR) Human Metapneumovir PCR Influenza Type A (PCR) Influenza Type B (PCR) M. pneumoniae (PCR) Parainfluenza 1 (PCR) Parainfluenza 2 (PCR) Parainfluenza 3 (PCR) Parainfluenza 4 (PCR) RSV (PCR) Entero/Rhino (PCR) Diagnostic Findings Chest x-ray was obtained the time admission which did not reveal any acute cardiopulmonary process. Chest CTA was performed in order to exclude pulmonary embolus. No evidence of pulmonary embolus. No other intra thoracic abnormality. Echocardiogram performed which revealed preserved LV systolic function. Normal wall motion with the exception of conduction abnormality. No significant valvular heart disease. ECG Additional Comments: EKG obtained the time admission revealed sinus tachycardia left bundle branch block PG Care Time/CCT Total # of Minutes Spent Total Time Spent with Patient: Total time spent is greater than 50% in coordination of care (as documented) at patient's floor/unit and/or counseling patient: Coding Level of Care Code 18760 INT INP/OBS CARE 3/75MIN Diagnoses Complete left bundle branch block I44.7
--- NOTE | 2023-07-06 11:05 | Hospitalist Progress Note ---
Date of Service July 06, 2023 Assessment & Plan (1) Weakness: Plan: the patient has a host of complaints ranging from infectious symptoms (fatigue, weakness, sweats, chills, nonspecific aches, etc), to acute/chronic L shoulder pain, neck pain with radicular symptoms of L arm, diarrhea, etc her respiratory [employer] was negative CTA chest neg for PE, pneumonia, etc u/a not suggestive of UTI following my visit I checked sed rate & crp -- both very normal B12 level wnl 25-OH vit D level wnl CPK minimally elevated (see below) anaplasmosis smear neg lyme screen neg I am uncertain of a single entity/illness/etc that would tie together all presenting symptoms however, I would favor a viral process that would account for at least a majority of the infectious symptoms plan - * repeat CPK in am * check anaplasmosis DNA * check monospot with EBV titers in light of mildly elevated LFTs (although she has had such in the past per her recollection) * check CMV titers * imaging - see below * could consider repeating a COVID/flu/RSV test -- she mentions that her daughter & son-in-law in [place] recently had flu and COVID respectively (2) Left-sided chest pain: Plan: no evidence of ACS all trops negative telemetry wnl has a LBBB and, although no prior EKG is available, is likely chronic CTA chest neg for PE echo with preserved EF and normal LV wall motion she has reproducible chest wall pain with palpation most c/w musculoskeletal chest wall pain Dr Newberry from [facility] saw patient in consult --> low concern for CAD per Dr Newberry she does have a family h/o CAD and he plans to perform a coronary CT angiogram as outpatient to be complete no plans for stress testing while here (3) Complete left bundle branch block: Plan: no evidence of ACS likely chronic although no prior EKG is available see #2 above (4) Elevated CPK: Plan: minimally elevated if she has a nonspecific viral process that would be the most likely cause she is not on a statin agent no recent heavy exercise no recent fall no recent seizure simply repeat in am (5) Cervical radiculopathy: Plan: suspected left "shoulder" pain, left neck pain, and left arm symptoms seem most c/w cervi golden spine disease with radiculopathy likely lower c-spine - C5 or lower toradol prn for headache will help her neck/arm symptoms plan c-spine MRI today (6) Left shoulder pain: Plan: x-rays checked - unremarkable; no glenohumeral joint OA or AC joint OA she could have mild bursitis based on my exam cervical radiculopathy may be the primary culprit, however, causing "shoulder" pain (7) Asthma: Plan: no evidence of flare at this time lungs clear, CTA chest negative, no wheezing, o2 sats wnl (8) Epilepsy: Plan: Continue phenytoin 100 mg in the morning and 130 mg at night Dilantin level wnl no recent seizure activity (9) GERD (gastroesophageal reflux disease): Plan: Protonix 40mg daily (10) Elevated hemoglobin: Plan: mild elevation to 16.5 improved to <16 s/p IV fluids I do not have old values to compare she is not aware of primary high values she is not a smoker reports some snoring rest of CBC is unremarkable may have had mild volume contraction at presentation but today looks well- hydrated (11) Low back pain: Plan: in light of b/l leg weakness will obtain MRI lumbar spine in addition to cervical spine MRI (12) Migraine: Plan: sed rate/crp wnl making GCA/TA very unlikely symptoms are c/w migraine - she has had such for decades off/on fioricet prn toradol prn Plan VTE PPx: Lovenox 40 mg SQ q24h updated at bedside observe overnight Admission and Anticipated Discharge Date Admission Date: July 05, 2023 Subjective patient with numerous complaints was at bedside during the visit tele overnight wnl patient reports she feels like she is sick with an illness she & her traveled to [facility] about a week ago to visit their daughter/son-in-law upon arrival home both she and her were very tired this fatigue lasted for the remainder of last week over last week & this past weekend she has had the following - 1. b/l leg weakness (but no true myalgias) 2. upper chest discomfort - above the left breast - "sore"; some of this discomfort radiates to the left shoulder 3. left arm pain and numbness - extends from the left neck region and travels down the entire left arm 4. posterior neck pain 5. mild lumbar pain in the midline 6. acute on chronic left shoulder pain; for years she has had left shoulder pain dating back to her early adult years after suffering an injury; hears a pop at times; recently the left "shoulder" has been hurting more than usual 7. appetite is a little off 8. fatigue 9. headache - feels like a migraine 10. shortness of breath - only in the last day or two 11. sweating with cold chills but no fever Review of Systems Review of Systems: gen - no fevers cv - no substernal chest pain, no orthopnea, no PND, no edema pulm - no significant cough, no wheeze GI - no vomiting; some loose stool recently - no LUTS musculo - no recent fall or injury Physical Exam Physical Exam: gen - looks tired but nontoxic, pleasant eyes - PERRL mouth - MMM neck - no JVD; supple; mild decrease in active/passive ROM (she feels crepitus in neck); she has paraspinal tenderness on left heart - RRR, s1 s2, no murmur chest - reproducible chest wall tenderness to palpation above the left breast and extending toward the clavicle/L shoulder lungs - scant dry rales bases, otherwise CTA b/l abd - soft NT ND BS+; no HSM ext - no edema, pulses 2+ b/l neuro - strength 5/5 x 4 exts both proximal & distal muscle groups; DTRs 2+ b/l upper & lower ext; no facial droop musculo - left shoulder - no gross abnormality; mildly tender over the subacromial bursae; no crepitus with passive ROM; mild tenderness with abduction past 90 degrees; minimal tenderness with internal rotation but not external rotation Results & Data Results & Data Vital Signs (Past 12 Hours) Vital Signs Temp Pulse Pulse Resp BP Pulse Ox O2 Del Method 07/06/23 07:37 87 07/06/23 07:00 36.7 C 91 H 16 147/99 H 94 Room Air 07/06/23 03:02 36.9 C 87 18 124/72 93 Room Air 07/05/23 23:36 89 07/05/23 23:07 37 C 92 H 18 117/65 95 Room Air Laboratory Results Laboratory Results - last 24 hr 07/05/23 07/05/23 07/05/23 10:57 10:57 10:57 WBC 5.17 RBC 5.41 H Hgb 16.6 H Hct 49.6 H MCV 91.7 MCH 30.7 MCHC 33.5 RDW Std Deviation 42.8 RDW Coeff of Mick 12.7 Plt Count 261 MPV 8.8 L Immature Gran % (Auto) 0.2 Neut % (Auto) 64.4 Lymph % (Auto) 25.9 [place] % (Auto) 7.2 Eos % (Auto) 1.5 Baso % (Auto) 0.8 Neut # (Auto) 3.33 Lymph # (Auto) 1.34 [place] # (Auto) 0.37 Eos # (Auto) 0.08 Baso # (Auto) 0.04 Immature Gran # (Auto) 0.01 PT 10.8 INR 1.0 APTT 28 PTT Ratio 1.0 Sodium 140 Potassium 3.8 Chloride 105 Carbon Dioxide 27 Anion Gap 8 BUN 9 Creatinine 0.65 Est Cr Clr Drug Dosing 82.7 Est GFR ( Amer) 106.5 Est GFR (Non-Af Amer) 91.9 BUN/Creatinine Ratio 13.8 Glucose 101 H Calcium 9.6 Phosphorus 2.8 Cancelled Magnesium 2.1 Cancelled Total Bilirubin 0.5 AST 61 H ALT 31 Alkaline Phosphatase 115 H Troponin I High Sens < 2.3 Total Protein 8.0 Albumin 4.8 Globulin 3.2 Albumin/Globulin Ratio 1.5 TSH 1.944 Urine Color Urine Appearance Urine pH Ur Specific [place] Urine Protein Urine Glucose (UA) Urine Ketones Urine Blood Urine Nitrite Urine Bilirubin Urine Urobilinogen Ur Leukocyte Esterase Phenytoin Adenovirus (PCR) B. pertussis DNA (PCR) B.parapertussis DNA PCR C. pneumoniae DNA (PCR) Coronavirus OC43 (PCR) Coronavirus HKU1 (PCR) Coronavirus 229E (PCR) SARS-CoV-2 (PCR) Coronavirus NL63 (PCR) Human Metapneumovir PCR Influenza Type A (PCR) Influenza Type B (PCR) M. pneumoniae (PCR) Parainfluenza 1 (PCR) Parainfluenza 2 (PCR) Parainfluenza 3 (PCR) Parainfluenza 4 (PCR) RSV (PCR) Entero/Rhino (PCR) 07/05/23 07/05/23 07/05/23 10:57 11:00 14:48 WBC RBC Hgb Hct MCV MCH MCHC RDW Std Deviation RDW Coeff of Mick Plt Count MPV Immature Gran % (Auto) Neut % (Auto) Lymph % (Auto) [place] % (Auto) Eos % (Auto) Baso % (Auto) Neut # (Auto) Lymph # (Auto) [place] # (Auto) Eos # (Auto) Baso # (Auto) Immature Gran # (Auto) PT INR APTT PTT Ratio Sodium Potassium Chloride Carbon Dioxide Anion Gap BUN Creatinine Est Cr Clr Drug Dosing Est GFR ( Amer) Est GFR (Non-Af Amer) BUN/Creatinine Ratio Glucose Calcium Phosphorus Magnesium Total Bilirubin AST ALT Alkaline Phosphatase Troponin I High Sens 4.4 Total Protein Albumin Globulin Albumin/Globulin Ratio TSH Cancelled Urine Color Yellow Urine Appearance Clear Urine pH 7.0 Ur Specific [place] 1.005 Urine Protein Negative Urine Glucose (UA) Negative Urine Ketones Negative Urine Blood Negative Urine Nitrite Negative Urine Bilirubin Negative Urine Urobilinogen Negative Ur Leukocyte Esterase Negative Phenytoin 13.0 Adenovirus (PCR) Not Detected B. pertussis DNA (PCR) Not Detected B.parapertussis DNA PCR Not Detected C. pneumoniae DNA (PCR) Not Detected Coronavirus OC43 (PCR) Not Detected Coronavirus HKU1 (PCR) Not Detected Coronavirus 229E (PCR) Not Detected SARS-CoV-2 (PCR) Not Detected Coronavirus NL63 (PCR) Not Detected Human Metapneumovir PCR Not Detected Influenza Type A (PCR) Not Detected Influenza Type B (PCR) Not Detected M. pneumoniae (PCR) Not Detected Parainfluenza 1 (PCR) Not Detected Parainfluenza 2 (PCR) Not Detected Parainfluenza 3 (PCR) Not Detected Parainfluenza 4 (PCR) Not Detected RSV (PCR) Not Detected Entero/Rhino (PCR) Not Detected 07/06/23 07:03 WBC 6.21 RBC 4.89 Hgb 15.3 Hct 45.1 MCV 92.2 MCH 31.3 MCHC 33.9 RDW Std Deviation 43.9 RDW Coeff of Mick 12.9 Plt Count 239 MPV 8.9 L Immature Gran % (Auto) 0.3 Neut % (Auto) 62.8 Lymph % (Auto) 28.2 [place] % (Auto) 7.1 Eos % (Auto) 1.0 Baso % (Auto) 0.6 Neut # (Auto) 3.90 Lymph # (Auto) 1.75 [place] # (Auto) 0.44 Eos # (Auto) 0.06 Baso # (Auto) 0.04 Immature Gran # (Auto) 0.02 PT INR APTT PTT Ratio Sodium 140 Potassium 4.0 Chloride 107 Carbon Dioxide 26 Anion Gap 7 BUN 11 Creatinine 0.68 Est Cr Clr Drug Dosing 78.9 Est GFR ( Amer) 104.9 Est GFR (Non-Af Amer) 90.5 BUN/Creatinine Ratio 16.2 Glucose 111 H Calcium 9.3 Phosphorus Magnesium Total Bilirubin AST ALT Alkaline Phosphatase Troponin I High Sens 3.0 Total Protein Albumin Globulin Albumin/Globulin Ratio TSH Urine Color Urine Appearance Urine pH Ur Specific [place] Urine Protein Urine Glucose (UA) Urine Ketones Urine Blood Urine Nitrite Urine Bilirubin Urine Urobilinogen Ur Leukocyte Esterase Phenytoin Adenovirus (PCR) B. pertussis DNA (PCR) B.parapertussis DNA PCR C. pneumoniae DNA (PCR) Coronavirus OC43 (PCR) Coronavirus HKU1 (PCR) Coronavirus 229E (PCR) SARS-CoV-2 (PCR) Coronavirus NL63 (PCR) Human Metapneumovir PCR Influenza Type A (PCR) Influenza Type B (PCR) M. pneumoniae (PCR) Parainfluenza 1 (PCR) Parainfluenza 2 (PCR) Parainfluenza 3 (PCR) Parainfluenza 4 (PCR) RSV (PCR) Entero/Rhino (PCR) Diagnostic Findings Chest X-Ray 07/05/23 10:45 XR chest 1V portable CLINICAL HISTORY: Chest pain, nonspecific COMPARISON STUDY: No previous studies for comparison. FINDINGS: Lung volumes are normal. Lungs are clear. There is no pneumothorax or pleural effusion. Cardiac size is normal. Mediastinal contours are normal. There is no evidence for pulmonary edema. IMPRESSION: No acute cardiopulmonary findings. ACT 112: Negative or not required by law. Electronically signed by: Washington Patino M.D. 07/05/2023 11:23 AM Chest CTA 07/05/23 11:20 CT ANGIOGRAPHY OF THE CHEST, PULMONARY EMBOLUS PROTOCOL CLINICAL HISTORY: Chest pain and shortness of breath. Evaluate for pulmonary embolus. COMPARISON STUDY: Chest radiograph performed earlier today. TECHNIQUE: Following IV administration of 112 mL of Optiray, helical axial images of the chest were obtained utilizing the pulmonary embolus protocol. Maximal intensity projections and sagittal and coronal reformats were viewed on an independent 3D workstation. IV contrast was administered without complic ation. Automated exposure control was utilized for the study. A dose lowering technique was utilized adhering to the principles of ALARA. CT DOSE: 605.27 mGy.cm FINDINGS: No pulmonary emboli are identified. There is no thoracic aortic dissection. Size of the heart is within normal limits. There is no pericardial effusion. No thoracic lymphadenopathy. No pneumothorax or pleural effusion. No consolidation to suggest pneumonia. Groundglass opacities favor atelectasis. There are no pulmonary nodules. No acute fractures within the visualized bony thorax. Visualized portions of the upper abdomen are unremarkable. Subcentimeter hypodense right hepatic lobe lesion favors a cyst. IMPRESSION: 1. No pulmonary emboli identified. 2. No acute intrathoracic findings. ACT 112: Negative or not required by law. Electronically signed by: Washington Patino M.D. 07/05/2023 12:10 PM Shoulder X-Ray 07/06/23 12:55 XR shoulder LT min 2V routine CLINICAL HISTORY: pain, decreased ROM. Left shoulder pain. COMPARISON STUDY: None. FINDINGS: No fracture or dislocation within the left shoulder. Left clavicle is intact. Soft tissues are unremarkable. Cartilage spaces are maintained for age. IMPRESSION: No fracture or dislocation within the left shoulder. ACT 112: Negative or not required by law. Electronically signed by: Luis Rizo M.D. 07/06/2023 2:21 PM PG Care Time/CCT Total # of Minutes Spent Total Time Spent with Patient: Total time spent is greater than 50% in coordination of care (as documented) at patient's floor/unit and/or counseling patient: Coding Level of Care Code 66933 SUB INP/OBS CARE 3/50MIN Diagnoses Weakness R53.1 Left-sided chest pain R07.9 Complete left bundle branch block I44.7 Elevated CPK R74.8 Cervical radiculopathy M54.12 Left shoulder pain M25.512 Asthma J45.909 Epilepsy G40.909 GERD (gastroesophageal reflux disease) K21.9 Elevated hemoglobin D58.2 Low back pain M54.50 Migraine G43.909
[2023-07-06] MEDS: KETOROLAC 30 MG/ML VIAL IV ONE (11:36)
[2023-07-06 11:50] LABS: Estimated Average Glucose 105 mg/dl; Hemoglobin A1C 5.3 % (4.5-5.6)
[2023-07-06 12:00] LABS: C Reactive Protein < 0.50 mg/dl (0-0.5); Creatine Kinase 238 U/L (26-192)
--- NOTE | 2023-07-06 14:22 | XRay Report ---
XR shoulder LT min 2V routine CLINICAL HISTORY: pain, decreased ROM. Left shoulder pain. COMPARISON STUDY: None. FINDINGS: No fracture or dislocation within the left shoulder. Left clavicle is intact. Soft tissues are unremarkable. Cartilage spaces are maintained for age. IMPRESSION: No fracture or dislocation within the left shoulder. ACT 112: Negative or not required by law. Electronically signed by: Luis Rizo M.D. 07/06/2023 2:21 PM
[2023-07-06] MEDS: LORazepam 1 MG in SYRINGE 0.5 ML IV STA (20:28)
[2023-07-06] MEDS ORDERED: KETOROLAC TROMETHAMINE 15 MG/ML VIAL IV PRN (21:16)
[2023-07-06] MEDS: BUTALBITAL/ACETAMIN/CAFFEINE TAB PO PRN (22:19)
[2023-07-07 06:35] LABS: Basophils # (auto) 0.06 K/uL (0.00-0.20); Basophils % (auto) 1.2 %; Eosinophils # (auto) 0.11 K/uL (0.00-0.50); Eosinophils % (auto) 2.2 %; Hematocrit (blood only) 42.5 % (37.0-47.0); Hemoglobin 14.7 g/dl (12.0-16.0); Immature Granulocytes # (auto) 0.01 K/uL (0.01-0.20); Immature Granulocytes % (auto) 0.2 %; Lymphocytes # (auto) 1.62 K/uL (1.20-3.40); Lymphocytes % (auto) 32.8 %; Mean Corpuscular Hemoglobin 31.3 pg (25.0-34.0); Mean Corpuscular Hgb Conc 34.6 g/dL (32.0-36.0); Mean Corpuscular Volume 90.6 fL (80.0-100.0); Mean Platelet Volume 8.8 fL (9.4-12.4); Monocytes # (auto) 0.45 K/uL (0.11-0.59); Monocytes % (auto) 9.1 %; Neutrophils # (auto) 2.69 K/uL (1.40-6.50); Neutrophils % (auto) 54.5 %; Platelet Count 213 K/uL (130-400); RDW Coefficient of Variation 12.8 % (11.5-14.5); RDW Standard Deviation 42.3 fL (36.4-46.3); Red Blood Count 4.69 M/uL (4.20-5.40); White Blood Count 4.94 K/ul (4.8-10.8)
[2023-07-07 07:23] LABS: Calcium 8.9 mg/dl (8.6-10.3); Potassium 3.8 mmol/L (3.5-5.1)
[2023-07-07 07:28] LABS: BUN Creatinine Ratio 20.9 (10-20); Creatinine Clr Calc Pharmacy 81.4 ml/min; Est GFR (African American) 105.4 ml/min
[2023-07-07] MEDS: PANTOprazole 40 MG TAB PO SCH (07:33)
--- NOTE | 2023-07-07 08:14 | Magnetic Resonance Report ---
LUMBAR SPINE MRI HISTORY: Bilateral lower extremity weakness. TECHNIQUE: Multiplanar multisequence MRI of the lumbar spine was performed without the use of contras t. COMPARISON: None. FINDINGS: For the purpose of the report the L5-S1 disc space will be located on axial image 27 of 30. There are few T2 hyperintense, T1 hypointense renal lesions with the largest in the left measuring 1 cm. These are incompletely characterized on this noncontrast study but favor small cysts. There are s mall left renal parapelvic cysts also noted. The paravertebral soft tissues are unremarkable. Mild fa cet degenerative changes within the lower lumbar spine. No fracture or subluxation within the lumbar spine. The visualized sacrum is intact. The conus terminates at the L1-L2 disc space level. There is mild dextroscoliosis of the lumbar spine. Moderate disc space narrowing at L2-L3 and mild disc space narrowing at L3-L4 and L4-L5. There is mild degenerative disc disease within the lower thoracic spine . Hemangioma seen within the right L2 pedicle. L1-L2: No significant central canal or neural foraminal narrowing. L2-L3: Broad-based posterior disc bulge with mild ligamentum and facet hypertrophy. This results in m ild narrowing of the left lateral recess without significant central canal narrowing. There is also m ild bilateral neural foraminal narrowing due to the disc bulge and facet hypertrophy. L3-L4: Broad-based posterior disc bulge with ligamentum and facet hypertrophy resulting in mild centr al canal narrowing and mild bilateral neural foraminal narrowing. L4-L5: Broad-based posterior disc bulge with ligamentum and facet hypertrophy resulting in mild centr al canal and mild bilateral neural foraminal narrowing. L5-S1: No significant central canal or neural foraminal narrowing. IMPRESSION: 1. Multilevel degenerative changes as described above. This is most pronounced at the L3-L4 and L4-5 levels. 2. Mild dextroscoliosis. 3. No fracture or subluxation. ACT 112: Negative or not required by law. Electronically signed by: Luis Rizo M.D. 07/07/2023 8:12 AM
--- NOTE | 2023-07-07 09:28 | Magnetic Resonance Report ---
MR cervical spine wo con HISTORY: 68 years-old Female LUE radicular pain, b/l LE weakness Chronic neck pain with upper extrem ity weakness. COMPARISON: None. TECHNIQUE: Multiplanar and multisequence MRI of the cervical spine was obtained without the use of IV contrast. FINDINGS: No acute process is identified within the imaged posterior fossa. Normal signal within the brainstem, cervical and imaged thoracic spinal cord. No acute fracture, subluxation, endplate erosion or marrow replacing process. Paravertebral tissues are unremarkable. C2-C3: Uncovertebral hypertrophy with moderate facet arthrosis. Mild right foraminal narrowing. The c entral canal and left neural foramen are patent. C3-C4: Uncovertebral hypertrophy with eftu-ex-trugqkeq facet arthrosis. Mild bilateral foraminal narr owing. The central canal is patent. C4-C5: Mild intervertebral disc space narrowing with uncovertebral hypertrophy. Small circumferential annular disc bulge with posterior disc osteophyte complex and wbow-pm-pyshwyyi facet arthrosis. AP d imension of the thecal sac measures 7.5 mm. Slight deformity upon the ventral aspect of the cord. Sev ere right with anapjhgx-ch-ajxuyy left foraminal narrowing. C5-C6: Mild intervertebral disc space narrowing with uncovertebral hypertrophy and small circumferent ial annular disc bulging with ybvp-cs-zmirghrj facet arthrosis. Minimal central canal stenosis. Mild- to-moderate right with moderate left foraminal narrowing. C6-C7: Moderate intervertebral disc space narrowing with circumferential disc osteophyte complex whic h is most pronounced within the right paracentral distribution and vnoc-da-owaoeklz facet arthrosis. There is deformity upon the ventral aspect of the cervical spinal cord with AP dimension of the centr al canal measuring 8 mm. Mild central canal stenosis. Bgvj-ml-zcqflzas bilateral foraminal narrowing. C7-T1: Moderate facet arthrosis. No central canal or foraminal narrowing. IMPRESSION: 1. No acute fracture or significant bone marrow edema. 2. Discogenic degeneration with facet arthrosis results in multilevel neural foraminal stenosis. 3. Ldse-fh-tyhtqaju central canal stenosis at C4-C5 with mild central canal stenosis at C6-C7. 4. Normal signal of the cervical spinal cord. ACT 112: Negative or not required by law. The above report was generated using voice recognition software. It may contain grammatical, syntax o r spelling errors. Dictated: 07/07/2023 7:29 AM Transcribed: 07/07/2023 8:18 AM [email or web address] [id number] [email or web address] Electronically signed by: Derrick Cox M.D. 07/07/2023 9:27 AM
--- NOTE | 2023-07-07 19:40 | Discharge Summary ---
Date of Service July 07, 2023 Admission HPI Per Admitting Provider Gordo is a 68-year-old female with PMH of GERD, asthma, and epilepsy. She presented worsening acute on chronic left shoulder pain with radiation to left jaw x 1 week. She also endorses chest heaviness, and episodes of sweating and chills, which the patient reports feel like hot flashes x 3 episodes over the past 4 days; these episodes are short-lived and she reports that one episode occurred while walking down the stairs. She notes new onset leg weakness that started on Saturday 07/01. She was fasting for Lent, but says it felt like she "ran a marathon" on and Thursday. She has been taking Tylenol on occasion for headache, as well as using Aspercreme for her left shoulder pain. The left shoulder pain/pressure is intermittent and is alleviated with different changes in position. She rates 2/10 at present, and describes it as a dull, achy pain that last for approximately 20 minutes at a time. She does note that she sees a chiropractor (last saw chiropractor 3 weeks ago), and that she does hear shoulder popping on occasion. She also notes that the radiation to her left jaw has occurred in the past outside of the past week. Patient took all of her regular morning medications today, including Dilantin for history of epilepsy. Of note, she started on Singulair 3 weeks ago to help decrease her inhaler usage for asthma. No prior medical history of OH, stroke, DVT/PE, cancer, diabetes. She is right-handed. No recent overexertion of the left arm, and she reports that the left arm often falls asleep. She does not remember when she last had an EKG done, but has never been told that she had a bundle block in the past; she believes she had last EKG done in 2008 when she had her gallbladder removed. She denies fainting, falls, or trauma to the left arm or shoulder. She denies smoking, alcohol use. Patient is hypertensive at 159/93, and mildly tachycardic at 106 bpm at time of admission; vitals otherwise stable. ED course: NSS 1000 mL IV x 2 Acetaminophen 1000 mg IV Solu-Medrol 60 mg IV Albuterol 2 puffs Famotidine 20 mg IV Aspirin 324 mg p.o. ROS: Patient endorses chills, sweating, AGUILAR, chest heaviness, dry cough, sore throat, and left shoulder pain/pressure that intermittently radiates to the left jaw. Patient denies fever, dizziness, lightheadedness, fainting, SOB, abdominal pain, N/V/D, or numbness/tingling going down arms or legs. Principal Diagnosis likely viral syndrome, musculoskeletal chest wall pain, left bundle branch block, cervical radicular pain Discharge Exam PHYSICAL EXAMINATION Last 24h vital signs reviewed, see documentation in flowsheet General: comfortable appearing, no distress HEENT: Normocephalic, atraumatic, pupils round and equal, sclerae anicteric, no conjunctival injection, moist mucus membranes Lungs: Normal respiratory effort. Clear to auscultation bilaterally. No RRW Heart: Regular rate and rhythm, no murmurs. No JVD Abdomen: Soft, nontender, nondistended. Bowel sounds present. Extremities: Warm, dry, well-perfused. No extremity edema. Neuro: Alert and oriented x 4, face symmetric, moves 4 extremities well Psych: Normal affect and behavior Discharge Data Allergies Allergy/AdvReac Type Severity Reaction Status Date / Time budesonide [From Symbicort] Allergy Severe Swelling Unverified 07/05/23 13:53 of Lip/Tongue/Throat formoterol [From Symbicort] Allergy Severe Swelling Unverified 07/05/23 13:53 of Lip/Tongue/Throat shellfish derived Allergy Severe Swelling Unverified 07/05/23 13:53 of Lip/Tongue/Throat gluten Allergy Intermediate Gastrointestinal Unverified 07/05/23 13:53 Upset nitrofurantoin Allergy Intermediate Rash Verified 07/06/23 21:21 [From Macrobid] Penicillins Allergy Intermediate Rash Verified 07/06/23 21:21 Sulfa (Sulfonamide Allergy Intermediate Rash Verified 07/06/23 21:21 Antibiotics) Consultations 07/05/23 14:31 ED Decision to Admit Stat 07/05/23 20:57 Consult Cardiology Routine Ordered Studies 07/05/23 11:20 CT angio chest PE protocol Stat 07/06/23 12:55 MR cervical spine wo con Routine MR lumbar spine wo con Routine Chest X-Ray 07/05/23 10:45 XR chest 1V portable CLINICAL HISTORY: Chest pain, nonspecific COMPARISON STUDY: No previous studies for comparison. FINDINGS: Lung volumes are normal. Lungs are clear. There is no pneumothorax or pleural effusion. Cardiac size is normal. Mediastinal contours are normal. There is no evidence for pulmonary edema. IMPRESSION: No acute cardiopulmonary findings. ACT 112: Negative or not required by law. Electronically signed by: Washington Patino M.D. 07/05/2023 11:23 AM Chest CTA 07/05/23 11:20 CT ANGIOGRAPHY OF THE CHEST, PULMONARY EMBOLUS PROTOCOL CLINICAL HISTORY: Chest pain and shortness of breath. Evaluate for pulmonary embolus. COMPARISON STUDY: Chest radiograph performed earlier today. TECHNIQUE: Following IV administration of 112 mL of Optiray, helical axial images of the chest were obtained utilizing the pulmonary embolus protocol. Maximal intensity projections and sagittal and coronal reformats were viewed on an independent 3D workstation. IV contrast was administered without complication. Automated exposure control was utilized for the study. A dose lowering technique was utilized adhering to the principles of ALARA. CT DOSE: 605.27 mGy.cm FINDINGS: No pulmonary emboli are identified. There is no thoracic aortic dissection. Size of the heart is within normal limits. There is no pericardial effusion. No thoracic lymphadenopathy. No pneumothorax or pleural effusion. No consolidation to suggest pneumonia. Groundglass opacities favor atelectasis. There are no pulmonary nodules. No acute fractures within the visualized bony thorax. Visualized portions of the upper abdomen are unremarkable. Subcentimeter hypodense right hepatic lobe lesion favors a cyst. IMPRESSION: 1. No pulmonary emboli identified. 2. No acute intrathoracic findings. ACT 112: Negative or not required by law. Electronically signed by: Washington Patino M.D. 07/05/2023 12:10 PM Cervical Spine MRI 07/06/23 12:55 MR cervical spine wo con HISTORY: 68 years-old Female LUE radicular pain, b/l LE weakness Chronic neck pain with upper extremity weakness. COMPARISON: None. TECHNIQUE: Multiplanar and multisequence MRI of the cervical spine was obtained without the use of IV contrast. FINDINGS: No acute process is identified within the imaged posterior fossa. Normal signal within the brainstem, cervical and imaged thoracic spinal cord. No acute fracture, subluxation, endplate erosion or marrow replacing process. Paravertebral tissues are unremarkable. C2-C3: Uncovertebral hypertrophy with moderate facet arthrosis. Mild right foraminal narrowing. The central canal and left neural foramen are patent. C3-C4: Uncovertebral hypertrophy with ioxi-vm-kpzxojzb facet arthrosis. Mild bilateral foraminal narrowing. The central canal is patent. C4-C5: Mild intervertebral disc space narrowing with uncovertebral hypertrophy. Small circumferential annular disc bulge with posterior disc osteophyte complex and tmqd-hv-jmyyxtuz facet arthrosis. AP dimension of the thecal sac measures 7.5 mm. Slight deformity upon the ventral aspect of the cord. Severe right with ubnmioth-wk-jgopub left foraminal narrowing. C5-C6: Mild intervertebral disc space narrowing with uncovertebral hypertrophy and small circumferential annular disc bulging with isfs-hr-kqpbjwwi facet arthrosis. Minimal central canal stenosis. Lilt-ue-rvplfzpj right with moderate left foraminal narrowing. C6-C7: Moderate intervertebral disc space narrowing with circumferential disc osteophyte complex which is most pronounced within the right paracentral distribution and srvc-sw-kejyyppm facet arthrosis. There is deformity upon the ventral aspect of the cervical spinal cord with AP dimension of the central canal measuring 8 mm. Mild central canal stenosis. Gagw-ef-nlmxyunv bilateral foraminal narrowing. C7-T1: Moderate facet arthrosis. No central canal or foraminal narrowing. IMPRESSION: 1. No acute fracture or significant bone marrow edema. 2. Discogenic degeneration with facet arthrosis results in multilevel neural foraminal stenosis. 3. Imul-og-ggbmuzee central canal stenosis at C4-C5 with mild central canal stenosis at C6-C7. 4. Normal signal of the cervical spinal cord. ACT 112: Negative or not required by law. The above report was generated using voice recognition software. It may contain grammatical, syntax or spelling errors. Dictated: 07/07/2023 7:29 AM Transcribed: 07/07/2023 8:18 AM Akshat [id number] [email or web address] Electronically signed by: Derrick Cox M.D. 07/07/2023 9:27 AM Lumbar Spine MRI 07/06/23 12:55 LUMBAR SPINE MRI HISTORY: Bilateral lower extremity weakness. TECHNIQUE: Multiplanar multisequence MRI of the lumbar spine was performed without the use of contrast. COMPARISON: None. FINDINGS: For the purpose of the report the L5-S1 disc space will be located on axial image 27 of 30. There are few T2 hyperintense, T1 hypointense renal lesions with the largest in the left measuring 1 cm. These are incompletely characterized on this noncontrast study but favor small cysts. There are small left renal parapelvic cysts also noted. The paravertebral soft tissues are unremarkable. Mild facet degenerative changes within the lower lumbar spine. No fracture or subluxation within the lumbar spine. The visualized sacrum is intact. The conus terminates at the L1-L2 disc space level. There is mild dextroscoliosis of the lumbar spine. Moderate disc space narrowing at L2-L3 and mild disc space narrowing at L3-L4 and L4-L5. There is mild degenerative disc disease within the lower thoracic spine. Hemangioma seen within the right L2 pedicle. L1-L2: No significant central canal or neural foraminal narrowing. L2-L3: Broad-based posterior disc bulge with mild ligamentum and facet hypertrophy. This results in mild narrowing of the left lateral recess without significant central canal narrowing. There is also mild bilateral neural foraminal narrowing due to the disc bulge and facet hypertrophy. L3-L4: Broad-based posterior disc bulge with ligamentum and facet hypertrophy resulting in mild central canal narrowing and mild bilateral neural foraminal narrowing. L4-L5: Broad-based posterior disc bulge with ligamentum and facet hypertrophy resulting in mild central canal and mild bilateral neural foraminal narrowing. L5-S1: No significant central canal or neural foraminal narrowing. IMPRESSION: 1. Multilevel degenerative changes as described above. This is most pronounced at the L3-L4 and L4-5 levels. 2. Mild dextroscoliosis. 3. No fracture or subluxation. ACT 112: Negative or not required by law. Electronically signed by: Luis Rizo M.D. 07/07/2023 8:12 AM Shoulder X-Ray 07/06/23 12:55 XR shoulder LT min 2V routine CLINICAL HISTORY: pain, decreased ROM. Left shoulder pain. COMPARISON STUDY: None. FINDINGS: No fracture or dislocation within the left shoulder. Left clavicle is intact. Soft tissues are unremarkable. Cartilage spaces are maintained for age. IMPRESSION: No fracture or dislocation within the left shoulder. ACT 112: Negative or not required by law. Electronically signed by: Luis Rizo M.D. 07/06/2023 2:21 PM 07/07/23 06:07 07/07/23 06:07 Hospital Course (1) Weakness: She presented with a host of symptoms ranging from infectious symptoms (fatigue, weakness, sweats, chills, nonspecific aches, etc), to acute/chronic L shoulder pain, neck pain with radicular symptoms of L arm, diarrhea, etc her respiratory BioFire was negative CTA chest neg for PE, pneumonia, etc u/a not suggestive of UTI sed rate & crp -- both very normal B12 level wnl 25-OH vit D level wnl CPK minimally elevated (see below) anaplasmosis smear neg, DNA pending lyme screen neg I am uncertain of a single entity/illness/etc that would tie together all presenting symptoms however, I would favor a viral process that would account for at least a majority of the infectious symptoms * repeat CPK remains minimally abnormal at 217 * check anaplasmosis DNA - pending * monospot was negative with EBV and CMV serology pending Seems to be feeling better and likely has a resolving viral syndrome Will follow up in primary care, will contact her if above pending tests are abnormal (2) Left-sided chest pain: no evidence of ACS all trops negative telemetry wnl has a LBBB and, although no prior EKG is available, is likely chronic CTA chest neg for PE echo with preserved EF and normal LV wall motion she has reproducible chest wall pain with palpation most c/w musculoskeletal chest wall pain [place] [facility] [place] in consult --> low concern for CAD per Dr Newberry she does have a family h/o CAD and he plans to perform a coronary CT angiogram as outpatient to be complete no plans for stress testing while here, follow up with Dr. Newberry as outpatient (3) Complete left bundle branch block: no evidence of ACS likely chronic although no prior EKG is available see #2 above (4) Elevated CPK: minimally elevated if she has a nonspecific viral process that would be the most likely cause (5) Cervical radiculopathy: left "shoulder" pain, left neck pain, and left arm symptoms seem most c/w cervical spine disease with radiculopathy - recently aggravated by quilting and flexing neck while playing word games on phone MRI cspine with mild-mod central canal stenosis at C4-5, severe R and mod-severe L foraminal narrowing at that level may explain symptoms -discussed findings, trial of conservative care for flare which often resolves after 2-3 weeks - discussed activity modification, analgesics, heat/ice -reasonable to refer as outpatient to spine surgeon for consultation if symptoms persist l (6) Left shoulder pain: x-rays checked - unremarkable; no glenohumeral joint OA or AC joint OA she could have mild bursitis based on my exam cervical radiculopathy may be the primary culprit, however, causing "shoulder" pain (7) Asthma: no evidence of flare at this time lungs clear, CTA chest negative, no wheezing, o2 sats wnl (8) Epilepsy: Continue phenytoin 100 mg in the morning and 130 mg at night Dilantin level wnl no recent seizure activity (9) GERD (gastroesophageal reflux disease): Protonix 40mg daily (10) Elevated hemoglobin: mild elevation to 16.5 in ED resolved after IV fluids to 14.7 so consistent with hemoconcentration -no old CBCs for comparison (11) Low back pain: in light of b/l leg weakness obtained MRI lumbar spine in addition to cervical spine MRI -multilevel degenerative changes present mostly L3-4 and L4-5 but only mild central canal narrowing, would not cause leg weakness -see above (12) Migraine: sed rate/crp wnl making GCA/TA very unlikely symptoms are c/w migraine - she has had such for decades off/on fioricet prn toradol prn Total Time Total Time Spent Total Time Spent (In Minutes): 25 minutes Discharge Plan Discharge Items Patient Disposition: Home - Self-Care Reason For Visit: L SHOULDER AND JAW PAIN/PRESSURE; LBBB ON EKG Discharge Diagnosis: viral syndrome, cervical radicular pain, left bundle branch block Activity: Resume your previous activity Non-emergency contact: Primary Care Provider Call non-emergency contact if: you have any medication questions and your symptoms worsen Follow-up/Referrals: Herson Newberry MD [Physician] - Los Samano MD [Primary Care Provider] - (PLEASE CALL YOUR PRIMARY CARE PROVIDER TO SCHEDULE A FOLLOW-UP HOSPITAL DISCHARGE APPOINTMENT WITHIN 7-10 DAYS) Diet: Regular Addtl Attending Provider Instructions: You were evaluated for fatigue/weakness, left sided chest/shoulder pain, abnormal EKG You have left bundle branch pattern on EKG. Your Echo (heart ultrasound) was reassuring Follow up with drain tiler for further testing - he suggested outpatient coronary CTA to rule out underlying coronary artery disease You are likely recovering from a viral syndrome -COVID, influenza, and respiratory viral panel were negative -blood tests for EBV and CMV (that cause "mono") are pending, these are self- limited illnesses without specific treatment, but they can cause a lot of fatigue -lyme serology was negative, anaplasmosis smear was negative but DNA test is still pending You had MRI of c-spine and l-spine. You do have some degenerative (arthritic) changes on your c-spine MRI that could explain the left shoulder/arm pain. Try avoiding activities that flex your neck (like overuse of phone and quilting) see if these symptoms improve over a couple of weeks. Often these flares subside after about three weeks. If symptoms persist roasterman consider seeing a spine surgeon. -you can take acetaminophen or ibuprofen as needed for mild to moderate pain -heat, ice, or massage may also be helpful Keep a log of your blood pressure at home and follow up in primary care It was a pleasure seeing you in the hospital -Carlene Moody MD Pending Studies at Discharge: Yes Stand-Alone Forms: My [facility], Smoking Cessation Medications and DC Order Prescriptions: Continued multivitamin Tablet 1 tab PO QAM famotidine 40 mg tablet 40 mg PO DAILY phenytoin sodium extended [Dilantin Extended] 100 mg capsule 100 mg PO QAM triprolidine-pseudoephedrine 2.5-60 mg Tablet 1 tab PO QID pantoprazole 40 mg tablet,delayed release (DR/EC) 40 mg PO BID PRN (Reason: Acid Reflux) montelukast 10 mg tablet 10 mg PO DAILY Dilantin 30 mg capsule See Rx Instructions .ROUTE .COMPLEX Rx Instructions: Take 30mg w/ 100mg by mouth to equal 130mg at bedtime levalbuterol tartrate [Xopenex HFA] 45 mcg/actuation HFA aerosol inhaler 1 puff INHALATION .Q4-6H PRN (Reason: SOB) cholecalciferol (vitamin D3) [Vitamin D3] 50 mcg (2,000 unit) Tablet 50 mcg PO DAILY Discharge Orders: Discharge Order (Routine); Ordered 07/07/23 Ordered By: Carlene Moody Admission Data Admit Date/Time: 07/05/23 16:17 Attending Provider: Carlene Moody Admit Provider: Rob Panda Primary Care Provider: Los Samano Other Providers: Rob Panda; Elias Arreaga Other Interventions: Discharge Summary Assessment (RN) Last Done: 07/07/23 13:39 Coding Level of Care Code 64681 IN/OBS DISCH 30 MIN/LESS Diagnoses Weakness R53.1 Left-sided chest pain R07.9 Complete left bundle branch block I44.7 Elevated CPK R74.8 Cervical radiculopathy M54.12 Left shoulder pain M25.512 Asthma J45.909 Epilepsy G40.909 GERD (gastroesophageal reflux disease) K21.9 Elevated hemoglobin D58.2 Low back pain M54.50 Migraine G43.909
[2023-07-08 13:03] LABS: CMV IgG Antibody <0.60 U/mL; CMV IgM Antibody <30.00 AU/mL
[2023-07-08 13:43] LABS: EBV Virus Capsid Ag IgG Ab >750.00 U/mL; Epstein Barr Virus Early Ag Ab <9.00 U/mL
== END 2023-07-07 14:08 | disposition home or self-care (01) ==
LOC: 2N 10:40 → ED 10:40 → SUATTDRO 16:17 → 2N 17:16
DX: Z82.49 Family history of ischemic heart disease and other diseases of the circulatory system; D58.2 Other hemoglobinopathies; Z88.0 Allergy status to penicillin; M54.2 Cervicalgia; Z88.1 Allergy status to other antibiotic agents; R74.8 Abnormal levels of other serum enzymes; R68.84 Jaw pain; Z11.52 Encounter for screening for COVID-19; M25.512 Pain in left shoulder; R53.1 Weakness; K21.9 Gastro-esophageal reflux disease without esophagitis; Z79.899 Other long term (current) drug therapy; I10 Essential (primary) hypertension; G43.909 Migraine, unspecified, not intractable, without status migrainosus; M54.50 Low back pain, unspecified; Z88.2 Allergy status to sulfonamides; R07.9 Chest pain, unspecified; I44.7 Left bundle-branch block, unspecified; J45.909 Unspecified asthma, uncomplicated; Z88.8 Allergy status to other drugs, medicaments and biological substances; G40.909 Epilepsy, unspecified, not intractable, without status epilepticus